=== PATIENT | male | born 1950 | race Caucasian/White ===

== ENCOUNTER → 2016-11-27 | Outpatient (CLI) | payer MEDICARE ==
--- NOTE | 2016-11-27 17:26 | PN ---
DATE OF SERVICE: 11/27/16 66 year old gentleman has been followed in the sleep center for treatment of obstructive sleep apnea/hypopnea syndrome. The patient continued to use his equipment every night for the whole night without significant problems. He was tried on nasal pillows before but because he opened his mouth, he preferred to stay with full face mask. No snoring with the machine. He still has some sleepiness but it is improved. Today's [place] sleep scale is 9, previously was in the range of 11. MEDICATIONS: Losartan. During physical exam, the patient in no distress. BP 135/79. HR 60. RR 16. Height 5 feet 9 inches, weight 228, BMI 33.6, temp 97.0, oxygen saturation on room air, 95%. Oropharynx low position of low soft palate, abdomen is slightly obese. Extremities 1+ ankle edema bilaterally. other physical normal. NECK: Supple. No JVD. Thyroid is not palpable. LUNGS: Clear to percussion and auscultation. Good air exchange. No wheezing or rhonchi noted. HEART: S1, S2 regular. No murmurs, gallops or rubs. ABDOMEN: Soft, obese, nontender. Bowel sounds are positive. No organomegaly appreciated. W[employer]TER[employer] HELPER: Awake, alert and oriented times three. Cranial nerves 2 to 7 intact. There is no fasciculation or atrophy noted. No focal deficits observed. IMPRESSION: 1. Obstructive sleep apnea/hypopnea syndrome. The patient continued to use his equipment every night benefitting from treatment. 2. Obesity, the patient lost five pounds since previous visit one year ago. 3. Hypertension. 4. Status post vasectomy. 5. Back problem with pain in the hip area better than before. PLAN: 1. Continue treatment with CPAP every night for the whole night. 2. Prescription for mask tube filters. 3. Prescription for chin strap. The patient will try to use nasal pillows with a chin strap. 4. No driving if feels any sleepiness. 5. Continue losing weight. 6. Follow up visit in one year or earlier if the patient has any problems. Thank you very much for allowing me to participate in the management of your patient. Sincerely, Yordan Boyer MD, PhD, FAASM. Diplomat of [place] [employer] [place] [employer] Manager [employer] [facility]
== END ==
LOC: SLEEP 15:31
PROVIDERS: ATTEND Internal Medicine
DX: G47.33 Obstructive sleep apnea (adult) (pediatric) (principal); E66.9 Obesity, unspecified; I10 Essential (primary) hypertension; Z90.89 Acquired absence of other organs

== ENCOUNTER 2017-02-18 16:46 | Emergency (ER) | payer MEDICARE ==
[2017-02-18] MEDS ORDERED: IBUPROFEN 800 MG TAB PO STA (17:14)
[2017-02-18] MEDS ORDERED: ACETAMINOPHEN TAB 500 MG TAB PO STA (17:14)
[2017-02-18] MEDS ORDERED: SODIUM CHLORIDE 0.9% 1,000 ML IV STA ×2 (17:14)
[2017-02-18] MEDS ORDERED: IPRATROPIUM-ALBUTEROL 3 ML NEB INHALATION STA (17:16)
[2017-02-18] MEDS ORDERED: SODIUM CHLORIDE 0.9% 2,000 ML IV ONE (17:19)
--- NOTE | 2017-02-18 17:20 | ED ---
General Adult HPI - General Chief complaint: Arrhythmia/Palpitations Stated complaint: Heart Palputations Time Seen by Provider: 02/18/17 17:04 Source: patient, RN notes reviewed, old records reviewed Mode of arrival: wheelchair Limitations: no limitations - History of Present Illness Initial comments: this is a 66-year-old male presents emergency Department chief complaint of arrhythmias and palpitations for the past day. Patient reports that since Thursday he's been having any upper respiratory infection. He reports that he was taking [id number] medications. The last time he took over-the- counter clinical medicine was 11 PM. He states that after that he felt like his heart was racing. He went to an urgent care was approximately come here. Patient states he has no specific chest pain. He reports that when he takes a deep breath it seems to be somewhat difficult. Patient states that he had no nausea or vomiting. Patient reports that he does feel chilled. Patient states that his cough has been somewhat productive. Patient denies any significant cardiac history. He does have a history of hypertension, and states that he is borderline diabetic. Patient denies any recent chest pain, back pain, abdominal pain, nausea vomiting, numbness or tingling, dysuria or hematuria, constipation or diarrhea, headaches or visual changes, or any other current symptoms - Related Data Home Medications Medication Instructions Recorded Confirmed Losartan-Hctz 50-12.5 mg [Hyzaar 1 tab PO DAILY 10/08/13 02/18/17 50-12.5] Cholecalciferol [Vitamin D3] 5,000 unit PO Q48H 02/18/17 02/18/17 Chondroitin 1 tab PO DAILY 02/18/17 02/18/17 Cyanocobalamin [Vitamin B-12] 500 mcg PO DAILY 02/18/17 02/18/17 L.acidoph,Paracasei, B.lactis 1 cap PO DAILY 02/18/17 02/18/17 [Probiotic] [place]-3 Fatty Acids [[place]-3] 1,000 mg PO DAILY 02/18/17 02/18/17 Pyridoxine [Vitamin B-6] 50 mg PO DAILY 02/18/17 02/18/17 Ubidecarenone [Co Q-10] 100 mg PO DAILY 02/18/17 02/18/17 Previous Rx's Medication Instructions Recorded Albuterol Inhaler [Ventolin Hfa 1 - 2 puff INHALATION Q6HR PRN #1 02/18/17 Inhaler] inhaler Levofloxacin [Levaquin] 750 mg PO DAILY #7 tab 02/18/17 methylPREDNISolone Dose Pack 4 mg PO DIRECTED #21 package 02/18/17 [Medrol Dose Pack] Allergies Allergy/AdvReac Type Severity Reaction Status Date / Time MOLD AdvReac SINUS Uncoded 02/18/17 16:50 PROBLEMS Review of Systems ROS Statement: Those systems with pertinent positive or pertinent negative responses have been documented in the HPI. ROS Other: All systems not noted in ROS Statement are negative. Past Medical History Past Medical History: Hypertension Additional Past Medical History / Comment(s): SEASONAL ALLERGIES History of Any Multi-Drug Resistant Organisms: None Reported Past Surgical History: No Surgical Hx Reported Past Psychological History: No Psychological Hx Reported Smoking Status: Never smoker Past Alcohol Use History: None Reported Past Drug Use History: None Reported General Exam - General Exam Comments Initial Comments: this is a 66-year-old male. Patient does not appear to be in any acute distress. is diaphoretic. Limitations: no limitations General appearance: alert, in no apparent distress Head exam: Present: atraumatic, normocephalic, normal inspection Eye exam: Present: normal appearance, PERRL, EOMI. Absent: scleral icterus, conjunctival injection, periorbital swelling ENT exam: Present: normal exam, mucous membranes moist Neck exam: Present: normal inspection. Absent: tenderness, meningismus, lymphadenopathy Respiratory exam: Present: normal lung sounds bilaterally, wheezes (bilateral wheeze). Absent: respiratory distress, rales, rhonchi, stridor Cardiovascular Exam: Present: regular rate, tachycardia, normal heart sounds. Absent: systolic murmur, diastolic murmur, rubs, gallop, clicks GI/Abdominal exam: Present: soft, normal bowel sounds. Absent: distended, tenderness, guarding, rebound, rigid Extremities exam: Present: normal inspection, full ROM, normal capillary refill. Absent: tenderness, pedal edema, joint swelling, calf tenderness Back exam: Present: normal inspection Neurological exam: Present: alert, oriented X3, CN II-XII intact Psychiatric exam: Present: normal affect, normal mood Skin exam: Present: warm, dry, intact, normal color. Absent: rash Course Vital Signs 02/18/17 02/18/17 02/18/17 16:48 17:43 17:57 Temperature 99.0 F Pulse Rate 144 H 122 H 124 H Respiratory 20 Rate Blood Pressure 116/82 O2 Sat by Pulse 99 Oximetry 02/18/17 02/18/17 18:00 19:05 Temperature 99.3 F Pulse Rate 130 H 74 Respiratory 18 18 Rate Blood Pressure 102/81 134/67 O2 Sat by Pulse 98 98 Oximetry - Reevaluation(s) Reevaluation #1: 02/18/17 19:09 this patient was reevaluated heart rate 74 bpm. Patient did receive 2 L of fluids and broke his fever. He is stop sweating at this time. Patient reports that he is feeling much better and does not feel like his heart is racing. EKG Findings - EKG Comments: EKG Findings:: EKG performed at 1755 shows accelerated rhythm with ventricular rate of 1 99 bpm. Evidence of a left anterior vesicular block. Evidence of left ventricular hypertrophy with repolarization adamantly. Unable to detect TN interval. QRS duration 84 ms. QT QTc is 320/471. Medical Decision Making - Medical Decision Making this is a 66-year-old male presents emergency Department chief complaint Palpitations. Patient reports emergency Department heart rate of 143 he did report that he took a decongestant medication for upper respiratory infection For the past few days. Patient also is noted to have a fever 100.5. Patient's was given IV fluids and lab work obtained. Patient's lab work was relatively unremarkable. There was an elevated CK K . Discussed this with Dr. Menon. Is likely related to patient's tachycardia. After receiving Motrin and Tylenol 2 L of fluids patient's heart rate returned to normal, he reports he is feeling much better. Patient heart rate was noted to be 66. Patient will be discharged at this time with a prescription for steroids and antibiotics for upper respiratory infection. Patient understands return parameters. Patient was advised follow-up with his primary care provider within the next 1-2 days. - Lab Data Result diagrams: 02/18/17 17:00 02/18/17 17:00 Lab Results 02/18/17 02/18/17 02/18/17 Range/Units 17:00 17:00 17:00 WBC 11.9 H (3.8-10.6) k/uL RBC 5.37 (4.30-5.90) m/uL Hgb 15.3 (13.0-17.5) gm/dL Hct 47.1 (39.0-53.0) % MCV 87.6 (80.0-100.0) fL MCH 28.4 (25.0-35.0) pg MCHC 32.4 (31.0-37.0) g/dL RDW 13.7 (11.5-15.5) % Plt Count 275 (150-450) k/uL Neutrophils % 81 % Lymphocytes % 6 % Monocytes % 8 % Eosinophils % 2 % Basophils % 1 % Neutrophils # 9.6 H (1.3-7.7) k/uL Lymphocytes # 0.8 L (1.0-4.8) k/uL Monocytes # 1.0 (0-1.0) k/uL Eosinophils # 0.2 (0-0.7) k/uL Basophils # 0.1 (0-0.2) k/uL PT (9.0-12.0) sec INR (<1.2) APTT (22.0-30.0) sec D-Dimer (<0.60) mg/L FEU Sodium 139 (137-145) mmol/L Potassium 4.5 (3.5-5.1) mmol/L Chloride 102 (98-107) mmol/L Carbon Dioxide 23 (22-30) mmol/L Anion Gap 14 mmol/L BUN 13 (9-20) mg/dL Creatinine 0.71 (0.66-1.25) mg/dL Est GFR (MDRD) Af Amer >60 (>60 ml/min/1.73 sqM) Est GFR (MDRD) Non-Af >60 (>60 ml/min/1.73 sqM) Glucose 151 H (74-99) mg/dL Plasma Lactic Acid Dean (0.7-2.0) mmol/L Calcium 9.5 (8.4-10.2) mg/dL Magnesium 2.3 (1.6-2.3) mg/dL Total Bilirubin 1.3 (0.2-1.3) mg/dL AST 61 H (17-59) U/L ALT 74 H (21-72) U/L Alkaline Phosphatase 95 (38-126) U/L Total Creatine Kinase 796 H (55-170) U/L CK-MB (CK-2) 18.3 H* (0.0-2.4) ng/mL CK-MB (CK-2) Rel Index 2.3 Troponin I 0.030 (0.000-0.034) ng/mL Total Protein 7.4 (6.3-8.2) g/dL Albumin 4.6 (3.5-5.0) g/dL TSH 1.610 (0.465-4.680) mIU/L Urine Color Urine Appearance (Clear) Urine pH (5.0-8.0) Ur Specific [place] (1.001-1.035) Urine Protein (Negative) Urine Glucose (UA) (Negative) Urine Blood (Negative) Urine Nitrite (Negative) Urine Bilirubin (Negative) Urine Urobilinogen (<2.0) mg/dL Ur Leukocyte Esterase (Negative) 02/18/17 02/18/17 02/18/17 Range/Units 17:00 17:00 17:25 WBC (3.8-10.6) k/uL RBC (4.30-5.90) m/uL Hgb (13.0-17.5) gm/dL Hct (39.0-53.0) % MCV (80.0-100.0) fL MCH (25.0-35.0) pg MCHC (31.0-37.0) g/dL RDW (11.5-15.5) % Plt Count (150-450) k/uL Neutrophils % % Lymphocytes % % Monocytes % % Eosinophils % % Basophils % % Neutrophils # (1.3-7.7) k/uL Lymphocytes # (1.0-4.8) k/uL Monocytes # (0-1.0) k/uL Eosinophils # (0-0.7) k/uL Basophils # (0-0.2) k/uL PT 10.3 (9.0-12.0) sec INR 1.0 (<1.2) APTT 26.8 (22.0-30.0) sec D-Dimer 0.32 (<0.60) mg/L FEU Sodium (137-145) mmol/L Potassium (3.5-5.1) mmol/L Chloride (98-107) mmol/L Carbon Dioxide (22-30) mmol/L Anion Gap mmol/L BUN (9-20) mg/dL Creatinine (0.66-1.25) mg/dL Est GFR (MDRD) Af Amer (>60 ml/min/1.73 sqM) Est GFR (MDRD) Non-Af (>60 ml/min/1.73 sqM) Glucose (74-99) mg/dL Plasma Lactic Acid Dean 1.3 (0.7-2.0) mmol/L Calcium (8.4-10.2) mg/dL Magnesium (1.6-2.3) mg/dL Total Bilirubin (0.2-1.3) mg/dL AST (17-59) U/L ALT (21-72) U/L Alkaline Phosphatase (38-126) U/L Total Creatine Kinase (55-170) U/L CK-MB (CK-2) (0.0-2.4) ng/mL CK-MB (CK-2) Rel Index Troponin I (0.000-0.034) ng/mL Total Protein (6.3-8.2) g/dL Albumin (3.5-5.0) g/dL TSH (0.465-4.680) mIU/L Urine Color Urine Appearance (Clear) Urine pH (5.0-8.0) Ur Specific [place] (1.001-1.035) Urine Protein (Negative) Urine Glucose (UA) (Negative) Urine Blood (Negative) Urine Nitrite (Negative) Urine Bilirubin (Negative) Urine Urobilinogen (<2.0) mg/dL Ur Leukocyte Esterase (Negative) 02/18/17 Range/Units 19:25 WBC (3.8-10.6) k/uL RBC (4.30-5.90) m/uL Hgb (13.0-17.5) gm/dL Hct (39.0-53.0) % MCV (80.0-100.0) fL MCH (25.0-35.0) pg MCHC (31.0-37.0) g/dL RDW (11.5-15.5) % Plt Count (150-450) k/uL Neutrophils % % Lymphocytes % % Monocytes % % Eosinophils % % Basophils % % Neutrophils # (1.3-7.7) k/uL Lymphocytes # (1.0-4.8) k/uL Monocytes # (0-1.0) k/uL Eosinophils # (0-0.7) k/uL Basophils # (0-0.2) k/uL PT (9.0-12.0) sec INR (<1.2) APTT (22.0-30.0) sec D-Dimer (<0.60) mg/L FEU Sodium (137-145) mmol/L Potassium (3.5-5.1) mmol/L Chloride (98-107) mmol/L Carbon Dioxide (22-30) mmol/L Anion Gap mmol/L BUN (9-20) mg/dL Creatinine (0.66-1.25) mg/dL Est GFR (MDRD) Af Amer (>60 ml/min/1.73 sqM) Est GFR (MDRD) Non-Af (>60 ml/min/1.73 sqM) Glucose (74-99) mg/dL Plasma Lactic Acid Dean (0.7-2.0) mmol/L Calcium (8.4-10.2) mg/dL Magnesium (1.6-2.3) mg/dL Total Bilirubin (0.2-1.3) mg/dL AST (17-59) U/L ALT (21-72) U/L Alkaline Phosphatase (38-126) U/L Total Creatine Kinase (55-170) U/L CK-MB (CK-2) (0.0-2.4) ng/mL CK-MB (CK-2) Rel Index Troponin I (0.000-0.034) ng/mL Total Protein (6.3-8.2) g/dL Albumin (3.5-5.0) g/dL TSH (0.465-4.680) mIU/L Urine Color Yellow Urine Appearance Clear (Clear) Urine pH 5.5 (5.0-8.0) Ur Specific [place] 1.016 (1.001-1.035) Urine Protein Trace H (Negative) Urine Glucose (UA) Negative (Negative) Urine Blood Negative (Negative) Urine Nitrite Negative (Negative) Urine Bilirubin Negative (Negative) Urine Urobilinogen <2.0 (<2.0) mg/dL Ur Leukocyte Esterase Negative (Negative) - Radiology Data Radiology results: report reviewed No evidence of acute pulmonary disease. Disposition Clinical Impression: Dehydration, History of tachycardia, Upper respiratory infection Disposition: HOME SELF-CARE Condition: Good Instructions: Dehydration (ED), Acute Bronchitis (ED) Additional Instructions: patient advised to increase her fluids. Take Motrin or Tylenol every 4 hours for fever. Take the antibiotics and steroid prescription as directed. Return to the emergency department if any alarming signs or symptoms occur. Prescriptions: Albuterol Inhaler [Ventolin Hfa Inhaler] 1 - 2 puff INHALATION Q6HR PRN #1 inhaler PRN Reason: Shortness Of Breath Levofloxacin [Levaquin] 750 mg PO DAILY #7 tab methylPREDNISolone Dose Pack [Medrol Dose Pack] 4 mg PO DIRECTED #21 package Referrals: Gely Hawk DO [Primary Care Provider] - 1-2 days Time of Disposition: 19:47
[2017-02-18] MEDS ORDERED: SODIUM CHLORIDE 0.9% 1,000 ML IV SCH (17:30)
[2017-02-18 17:32] LABS: Partial Thromboplastin Time 26.8 sec (22.0-30.0); Prothrombin Time 10.3 sec (9.0-12.0)
[2017-02-18 17:33] LABS: Basophils # (A) 0.1 k/uL (0-0.2); Basophils % (A) 1 %; CH 28.3; CHCM 32.4; Eosinophils # (A) 0.2 k/uL (0-0.7); Eosinophils % (A) 2 %; HCT 47.1 % (39.0-53.0); HDW 3.07; HGB 15.3 gm/dL (13.0-17.5); Luc # (Auto) 0.31; Luc % (Auto) 3; Lymphocytes # (A) 0.8 k/uL (1.0-4.8); Lymphocytes % (A) 6 %; MCH 28.4 pg (25.0-35.0); MCHC 32.4 g/dL (31.0-37.0); MCV 87.6 fL (80.0-100.0); Mean Platelet Volume 8.2; Monocytes % (A) 8 %; Neutrophils # (A) 9.6 k/uL (1.3-7.7); Neutrophils % (A) 81 %; RBC 5.37 m/uL (4.30-5.90); RDW 13.7 % (11.5-15.5); WBC 11.9 k/uL (3.8-10.6); WBC (Perox) 11.58
--- NOTE | 2017-02-18 17:34 | XR ---
EXAMINATION TYPE: XR chest 2V DATE OF EXAM: 02/18/2017 COMPARISON: NONE HISTORY: Shortness of breath TECHNIQUE: Frontal and lateral views of the chest are obtained. FINDINGS: Scattered senescent parenchymal changes noted. Hyperinflation compatible with COPD. No evidence for infiltrate. No evidence for atelectasis. Heart size is stable. Mediastinal structures are stable and grossly unremarkable. No evidence for hilar prominence. Degenerative changes dorsal spine. IMPRESSION: 1. No evidence for acute pulmonary disease.
[2017-02-18 17:37] LABS: ALT 74 U/L (21-72); AST 61 U/L (17-59); Alkaline Phosphatase 95 U/L (38-126); Anion Gap 14 mmol/L; Blood Urea Nitrogen 13 mg/dL (9-20); Calcium 9.5 mg/dL (8.4-10.2); Carbon Dioxide 23 mmol/L (22-30); Chloride 102 mmol/L (98-107); Glucose 151 mg/dL (74-99); Magnesium 2.3 mg/dL (1.6-2.3); Non-African American GFR(MDRD) >60 (>60 ml/min/1.73 sqM); Potassium 4.5 mmol/L (3.5-5.1); Sodium 139 mmol/L (137-145); Total Bilirubin 1.3 mg/dL (0.2-1.3); Total Protein 7.4 g/dL (6.3-8.2)
[2017-02-18 17:57] LABS: Troponin I 0.03 ng/mL (0.000-0.034)
[2017-02-18 17:58] LABS: Creatine Kinase MB 18.3 ng/mL (0.0-2.4)
[2017-02-18 19:06] VITALS: RESP 18
[2017-02-18 19:37] LABS: Appearance,Urine Clear (Clear); Bilirubin,Urine Negative (Negative); Glucose,Urine (UA) Negative (Negative); Ketones,Urine 2+ (Negative); Leukocyte Esterase,Urine Negative (Negative); Nitrite,Urine Negative (Negative); PH, Urine 5.5 (5.0-8.0); Protein,Urine Trace (Negative); Specific Gravity,Urine 1.016 (1.001-1.035); UA Billing (MACRO vs. MICRO) CHEM; Urobilinogen,Urine <2.0 mg/dL (<2.0)
[2017-02-18 20:01] VITALS: BP 110/62; PULSE 67; TEMP 99.2
== END 2017-02-18 19:59 | disposition home or self-care (01) ==
LOC: EC 16:46
DX: E86.0 Dehydration (principal); J06.9 Acute upper respiratory infection, unspecified; R00.0 Tachycardia, unspecified; R61 Generalized hyperhidrosis; R73.09 Other abnormal glucose; I10 Essential (primary) hypertension; Z79.899 Other long term (current) drug therapy; Z91.048 Other nonmedicinal substance allergy status
CPT/HCPCS: 36415; 71020; 80053; 81003; 82550; 82553; 83605; 83735; 84443; 84484; 85025; 85379; 85610; 85730; 87040; 93005; 94640; 96360; 96361; 99285

== ENCOUNTER 2017-02-20 14:24 | Emergency (ER) | payer MEDICARE ==
[2017-02-20] MEDS ORDERED: SODIUM CHLORIDE 0.9% 500 ML IV STA (14:58)
[2017-02-20] MEDS ORDERED: ADENOSINE 3 MG/ML 2 ML VIAL IVP STA (15:01)
--- NOTE | 2017-02-20 15:02 | ED ---
General Adult HPI - General Chief complaint: Arrhythmia/Palpitations Stated complaint: heart palpitations-revisit Time Seen by Provider: 02/20/17 14:30 Source: patient, RN notes reviewed Mode of arrival: wheelchair Limitations: no limitations - History of Present Illness Initial comments: This is a 66-year-old male presents emergency Department with the sensation of his heart is racing and he has some heaviness on his chest per patient states there is some mild shortness of breath associated with it. Patient states this happened on Thursday came to the hospital at low-grade fever and was told he had bronchitis in his heart rate slowed down after his fever appeared to go away. Patient states she has not had any temperatures and knows of today. He did take Tylenol at about 11:00 this morning. Patient denies any abdominal pain patient denies any nausea vomiting diarrhea per patient denies any erythema lesions or rashes anywhere. Patient denies headache patient denies numbness weakness. - Related Data Home Medications Medication Instructions Recorded Confirmed Losartan-Hctz 50-12.5 mg [Hyzaar 1 tab PO DAILY 10/08/13 02/20/17 50-12.5] Cholecalciferol [Vitamin D3] 5,000 unit PO Q48H 02/18/17 02/20/17 Cyanocobalamin [Vitamin B-12] 500 mcg PO DAILY 02/18/17 02/20/17 L.acidoph,Paracasei, B.lactis 1 cap PO DAILY 02/18/17 02/20/17 [Probiotic] [place]-3 Fatty Acids [[place]-3] 1,000 mg PO DAILY 02/18/17 02/20/17 Pyridoxine [Vitamin B-6] 50 mg PO DAILY 02/18/17 02/20/17 Ubidecarenone [Co Q-10] 100 mg PO DAILY 02/18/17 02/20/17 Glucosamine-Chondr 500-400Mg 1 tab PO DAILY 02/20/17 02/20/17 Previous Rx's Medication Instructions Recorded Albuterol Inhaler [Ventolin Hfa 1 - 2 puff INHALATION Q6HR PRN #1 02/18/17 Inhaler] inhaler Levofloxacin [Levaquin] 750 mg PO DAILY #7 tab 02/18/17 methylPREDNISolone Dose Pack 4 mg PO DIRECTED #21 package 02/18/17 [Medrol Dose Pack] Allergies Allergy/AdvReac Type Severity Reaction Status Date / Time mold AdvReac CONGESTION Verified 02/20/17 14:58 Review of Systems ROS Statement: Those systems with pertinent positive or pertinent negative responses have been documented in the HPI. ROS Other: All systems not noted in ROS Statement are negative. Past Medical History Past Medical History: Hypertension Additional Past Medical History / Comment(s): SEASONAL ALLERGIES History of Any Multi-Drug Resistant Organisms: None Reported Past Surgical History: No Surgical Hx Reported Past Psychological History: No Psychological Hx Reported Smoking Status: Never smoker Past Alcohol Use History: None Reported Past Drug Use History: None Reported General Exam - General Exam Comments Initial Comments: GENERAL: Patient is well-developed and well-nourished. Patient is nontoxic and well- hydrated and is in mild distress. ENT: Neck is soft and supple. No significant lymphadenopathy is noted. Oropharynx is clear. Moist mucous membranes. Neck has full range of motion without eliciting any pain. EYES: The sclera were anicteric and conjunctiva were pink and moist. Extraocular movements were intact and pupils were equal round and reactive to light. Eyelids were unremarkable. PULMONARY: Patient heart rate is regular and tachycardic at 134 beats a minute CARDIOVASCULAR: There is a regular rate and rhythm without any murmurs gallops or rubs. ABDOMEN: Soft and nontender with normal bowel sounds. No palpable organomegaly was noted. There is no palpable pulsatile mass. SKIN: Skin is clear with no lesions or rashes and otherwise unremarkable. NEUROLOGIC: Patient is alert and oriented x3. Cranial nerves II through XII are grossly intact. Motor and sensory are also intact. Normal speech, volume and content. Symmetrical smile. MUSCULOSKELETAL: Normal extremities with adequate strength and full range of motion. No lower extremity swelling or edema. No calf tenderness. LYMPHATICS: No significant lymphadenopathy is noted PSYCHIATRIC: Normal psychiatric evaluation. Normal interpersonal interactions appears functionally intact in deals appropriately with others. No signs of depression. Limitations: no limitations Course Vital Signs 02/20/17 02/20/17 02/20/17 14:26 14:30 15:12 Temperature 97 F L 99.1 F Pulse Rate 139 H 134 H Respiratory 18 18 Rate Blood Pressure 172/108 139/87 O2 Sat by Pulse 96 98 Oximetry 02/20/17 16:04 Temperature Pulse Rate 74 Respiratory 18 Rate Blood Pressure 127/68 O2 Sat by Pulse 98 Oximetry Medical Decision Making - Medical Decision Making EKG shows supraventricular tachycardia at 134 bpm QRS is 86 Q-T intervals 324 QTC is 483. Patient's EKG shows no ST segment elevation or depression or T wave abnormalities are noted. Patient is on a beta jane. Patient looked to be in SVT psychiatric the patient 6 of adenosine and converted the patient a normal sinus rhythm. EKG showed a normal sinus rhythm at 90 bpm UT interval 202 QRS is 108 QT interval 366 QTC is 447. Patient's symptoms almost completely resolved once the patient converted. Chest x-ray shows no acute abnormality. I went back into reevaluate the patient patient stated his symptoms had completely resolved shortly after he was given the adenosine. I will have the patient follow up with cardiology. - Lab Data Result diagrams: 02/20/17 14:52 02/20/17 14:52 Lab Results 02/20/17 02/20/17 02/20/17 Range/Units 14:52 14:52 14:52 WBC 12.2 H (3.8-10.6) k/uL RBC 5.32 (4.30-5.90) m/uL Hgb 15.1 (13.0-17.5) gm/dL Hct 46.4 (39.0-53.0) % MCV 87.2 (80.0-100.0) fL MCH 28.3 (25.0-35.0) pg MCHC 32.4 (31.0-37.0) g/dL RDW 14.5 (11.5-15.5) % Plt Count 261 (150-450) k/uL Neutrophils % 89 % Lymphocytes % 5 % Monocytes % 5 % Eosinophils % 0 % Basophils % 0 % Neutrophils # 10.8 H (1.3-7.7) k/uL Lymphocytes # 0.6 L (1.0-4.8) k/uL Monocytes # 0.6 (0-1.0) k/uL Eosinophils # 0.0 (0-0.7) k/uL Basophils # 0.0 (0-0.2) k/uL PT (9.0-12.0) sec INR (<1.2) APTT (22.0-30.0) sec D-Dimer (<0.60) mg/L FEU Sodium 138 (137-145) mmol/L Potassium 4.2 (3.5-5.1) mmol/L Chloride 105 (98-107) mmol/L Carbon Dioxide 19 L (22-30) mmol/L Anion Gap 14 mmol/L BUN 14 (9-20) mg/dL Creatinine 0.50 L (0.66-1.25) mg/dL Est GFR (MDRD) Af Amer >60 (>60 ml/min/1.73 sqM) Est GFR (MDRD) Non-Af >60 (>60 ml/min/1.73 sqM) Glucose 142 H (74-99) mg/dL Plasma Lactic Acid [place] (0.7-2.0) mmol/L Calcium 10.0 (8.4-10.2) mg/dL Magnesium 2.0 (1.6-2.3) mg/dL Total Bilirubin 0.8 (0.2-1.3) mg/dL AST 76 H (17-59) U/L ALT 77 H (21-72) U/L Alkaline Phosphatase 99 (38-126) U/L Total Creatine Kinase 501 H (55-170) U/L CK-MB (CK-2) 15.3 H* (0.0-2.4) ng/mL CK-MB (CK-2) Rel Index 3.1 Troponin I <0.012 (0.000-0.034) ng/mL NT-Pro-B Natriuret Pep pg/mL Total Protein 7.2 (6.3-8.2) g/dL Albumin 4.5 (3.5-5.0) g/dL 02/20/17 02/20/17 02/20/17 Range/Units 14:52 14:52 14:52 WBC (3.8-10.6) k/uL RBC (4.30-5.90) m/uL Hgb (13.0-17.5) gm/dL Hct (39.0-53.0) % MCV (80.0-100.0) fL MCH (25.0-35.0) pg MCHC (31.0-37.0) g/dL RDW (11.5-15.5) % Plt Count (150-450) k/uL Neutrophils % % Lymphocytes % % Monocytes % % Eosinophils % % Basophils % % Neutrophils # (1.3-7.7) k/uL Lymphocytes # (1.0-4.8) k/uL Monocytes # (0-1.0) k/uL Eosinophils # (0-0.7) k/uL Basophils # (0-0.2) k/uL PT 10.7 (9.0-12.0) sec INR 1.1 (<1.2) APTT 24.8 (22.0-30.0) sec D-Dimer 0.45 (<0.60) mg/L FEU Sodium (137-145) mmol/L Potassium (3.5-5.1) mmol/L Chloride (98-107) mmol/L Carbon Dioxide (22-30) mmol/L Anion Gap mmol/L BUN (9-20) mg/dL Creatinine (0.66-1.25) mg/dL Est GFR (MDRD) Af Amer (>60 ml/min/1.73 sqM) Est GFR (MDRD) Non-Af (>60 ml/min/1.73 sqM) Glucose (74-99) mg/dL Plasma Lactic Acid [place] 1.2 (0.7-2.0) mmol/L Calcium (8.4-10.2) mg/dL Magnesium (1.6-2.3) mg/dL Total Bilirubin (0.2-1.3) mg/dL AST (17-59) U/L ALT (21-72) U/L Alkaline Phosphatase (38-126) U/L Total Creatine Kinase (55-170) U/L CK-MB (CK-2) (0.0-2.4) ng/mL CK-MB (CK-2) Rel Index Troponin I (0.000-0.034) ng/mL NT-Pro-B Natriuret Pep 320 pg/mL Total Protein (6.3-8.2) g/dL Albumin (3.5-5.0) g/dL Critical Care Time Critical Care Time: Yes Total Critical Care Time: 35 Disposition Clinical Impression: Supraventricular tachycardia Disposition: HOME SELF-CARE Condition: Good Instructions: Supraventricular Tachycardia (ED) Referrals: Gely Hawk DO [Primary Care Provider] - 1-2 days Time of Disposition: 16:11
[2017-02-20 15:15] LABS: Basophils % (A) 0 %; CH 29.5; Eosinophils % (A) 0 %; HCT 46.4 % (39.0-53.0); HDW 3.11; HGB 15.1 gm/dL (13.0-17.5); Luc % (Auto) 1; Lymphocytes # (A) 0.6 k/uL (1.0-4.8); Lymphocytes % (A) 5 %; MCH 28.3 pg (25.0-35.0); MCHC 32.4 g/dL (31.0-37.0); MCV 87.2 fL (80.0-100.0); Mean Platelet Volume 8.1; Monocytes # (A) 0.6 k/uL (0-1.0); Monocytes % (A) 5 %; Neutrophils # (A) 10.8 k/uL (1.3-7.7); Neutrophils % (A) 89 %; RBC 5.32 m/uL (4.30-5.90); RDW 14.5 % (11.5-15.5); WBC 12.2 k/uL (3.8-10.6); WBC (Perox) 13.19
--- NOTE | 2017-02-20 15:26 | XR ---
EXAMINATION TYPE: XR chest 2V DATE OF EXAM: 02/20/2017 COMPARISON: 02/18/2017 HISTORY: Shortness of breath TECHNIQUE: Frontal and lateral views of the chest are obtained. FINDINGS: Scattered senescent parenchymal changes noted. Hyperinflation compatible with COPD. No evidence for infiltrate. No evidence for atelectasis. Heart size is stable. Mediastinal structures are stable and grossly unremarkable. No evidence for hilar prominence. Degenerative changes dorsal spine. IMPRESSION: 1. No evidence for acute pulmonary disease.
[2017-02-20 15:33] LABS: ALT 77 U/L (21-72); AST 76 U/L (17-59); Alkaline Phosphatase 99 U/L (38-126); Anion Gap 14 mmol/L; Blood Urea Nitrogen 14 mg/dL (9-20); Carbon Dioxide 19 mmol/L (22-30); Chloride 105 mmol/L (98-107); Glucose 142 mg/dL (74-99); Non-African American GFR(MDRD) >60 (>60 ml/min/1.73 sqM); Potassium 4.2 mmol/L (3.5-5.1); Sodium 138 mmol/L (137-145); Total Bilirubin 0.8 mg/dL (0.2-1.3); Total Protein 7.2 g/dL (6.3-8.2)
[2017-02-20 15:36] LABS: Creatine Kinase 501 U/L (55-170)
[2017-02-20 15:42] LABS: INR 1.1 (<1.2); Partial Thromboplastin Time 24.8 sec (22.0-30.0); Prothrombin Time 10.7 sec (9.0-12.0)
[2017-02-20 15:48] LABS: Troponin I <0.012 ng/mL (0.000-0.034)
[2017-02-20 15:49] LABS: Creatine Kinase MB 15.3 ng/mL (0.0-2.4)
[2017-02-20 16:49] VITALS: BP 130/77; PULSE 77; RESP 16; TEMP 99.3
== END 2017-02-20 16:48 | disposition home or self-care (01) ==
LOC: EC 14:24
DX: I47.1 Supraventricular tachycardia (principal); I10 Essential (primary) hypertension; Z91.09 Other allergy status, other than to drugs and biological substances; Z79.899 Other long term (current) drug therapy
CPT/HCPCS: 96361 ×2; 96374 ×2; 99285 ×2; 36415; 93005; 85379; 83880; 80053; 82550; 82553; 83605; 83735; 84484; 85025; 85610; 85730; 71020; J0153

== ENCOUNTER → 2017-12-17 | Outpatient (CLI) | payer MEDICARE ==
--- NOTE | 2017-12-17 18:49 | PN ---
PROGRESS NOTE DATE OF SERVICE: 12/17/2017 This patient is a 67-year-old gentleman who has been followed in the sleep center for treatment of obstructive sleep apnea-hypopnea syndrome. The patient successfully continues to use his CPAP equipment every night. He reports that sometimes his heated humidifier does not work. He still has sleepiness sometimes. [place] Sleepiness Scale is 13. I checked the patient's CPAP unit. CPAP pressure is 12 cm of water. Usage is 30/30 nights for more than 4 hours; average 7 hours 36 minutes. The patient is a using full- face mask with a chin strap. Sometimes he has difficulties breathing through the nose. MEDICATIONS: Losartan. PHYSICAL EXAMINATION: GENERAL A pleasant gentleman in no distress. VITAL SIGNS: BP 158/72, HR 72, RR 16, height 69-1/2, weight 222.8, BMI 30.3. Temperature 98.0. Oxygen saturation at room air 94%. HEENT: PERRLA, EOMI. Evaluation of oropharynx showed tongue protrudes midline; low position of soft palate. NECK: Supple. No JVD. Thyroid is not palpable. LUNGS: Clear to percussion and to auscultation. Good air exchange. No wheezing or rhonchi. HEART: S1, S2 regular. No murmurs, gallops or rubs. ABDOMEN: Obese. Soft and nontender. Bowel sounds are present. No organomegaly appreciated. EXTREMITIES : No clubbing or cyanosis. RFID ENGINEER: Awake, alert, and oriented X3. Cranial nerves 2 to 7 intact. There is no fasciculation or atrophy. noted. No focal deficits observed. IMPRESSION: 1. Obstructive sleep apnea-hypopnea syndrome. Patient demonstrated great compliance with treatment, benefitting from treatment. 2. Obesity. 3. Hypertension. 4. Status post . 5. Back problems. PLAN: 1. Patient will try nasal strips to use under the full-face mask. 2. Prescription for all necessary CPAP supplies, including full-face mask, tube, filters. 3. I checked the heated humidifier and it worked in the office, but maybe at home there are some bad connections from the machine to humidifier. Possibly needs to be rechecked or replaced if necessary in the future. 4. Losing weight. 5. Follow-up visit in 1 year or earlier if patient has any problems. We may consider replacement of his CPAP unit as soon as possible following insurance guidelines. Thank you very much for allowing me to participate in the management of your patient. Sincerely, Stephen Boyer MD, PhD, FAASM Diplomat of [employer] Journalism Intern of [facility] [place] DORCAS / AROLDO: [id number] /
== END | disposition home or self-care (01) ==
LOC: SLEEP 16:26
PROVIDERS: ATTEND Internal Medicine
DX: G47.33 Obstructive sleep apnea (adult) (pediatric) (principal); I10 Essential (primary) hypertension; E66.9 Obesity, unspecified; Z68.30 Body mass index [BMI] 30.0-30.9, adult; Z99.89 Dependence on other enabling machines and devices; Z79.899 Other long term (current) drug therapy

== ENCOUNTER → 2018-03-11 | Outpatient (CLI) | payer MEDICARE ==
--- NOTE | 2018-03-11 12:51 | SFUN ---
SLEEP CENTER FOLLOW UP NOTE DATE OF SERVICE: 03/11/2018 A 67-year-old gentleman who has been followed in sleep center for treatment of obstructive sleep apnea-hypopnea syndrome. Recently patient received new CPAP unit. This is his first visit on new CPAP unit. The reason to change the unit was because previously it was old, but also to be able to monitor patient breathing during the sleep, which is available by new unit. Patient continued to use his CPAP equipment every night for the whole night without any significant technical problems related to mask fitting, pressure or humidification. Previous sleep study was done in 2013 and by results of this sleep study CPAP pressure of 12 was fully effective for correction of respiratory abnormalities. Subsequently, a new machine was ordered for the patient with the same pressure 12 cm of water. I checked new CPAP unit today. The pressure is 12 cm of water. Leak is 12 L/minute, which is acceptable. Usage is 100% of the time more than 4 hours. Average usage 8.3 hours, which is perfect. Apnea-hypopnea index for the last month 24.5 with total apnea index 18.9 and central apnea index 2.9, which is not acceptable. [place] Sleepiness Scale today is increased to 12. MEDICATIONS: Losartan. PHYSICAL EXAMINATION: During physical exam, patient in no distress. VITAL SIGNS: BP 163/80, HR 66, RR 16, weight 227, which is 6 pounds less than during the previous titration 2013, temperature 97.6, oxygen saturation on room air 97%. HEENT: PERRLA, EOMI. Oropharynx low position of soft palate. NECK: Supple, no JVD. Thyroid is not palpable. LUNGS: Clear to percussion and to auscultation. Good air exchange. No wheezing or rhonchi. HEART: S1, S2 regular. No murmurs, gallops, or rubs. ABDOMEN: Soft and nontender. Bowel sounds are present. No organomegaly appreciated. EXTREMITIES: No clubbing or cyanosis. CIGAR MAKER; awake, alert, and oriented X3. Cranial nerves 2 to 7 intact. There is no fasciculation or atrophy. noted. No focal deficits observed. IMPRESSION: 1. Obstructive sleep apnea-hypopnea syndrome. The patient demonstrated 100% compliance with treatment, but still high apnea-hypopnea index by reading from the machine. 2. Hypertension. 3. Back problems. 4. Status post vasectomy. 5. History of sciatic nerve problems, presently no issues with that. PLAN: 1. I will change regimen in the machine to automatic with a maximum pressure of 16 cm of water. 2. Patient will continue to use CPAP equipment every night. 3. Losing weight. 4. Sleep hygiene with regular time in bed for at least 8 hours. 5. No driving if feeling any sleepiness. 6. Follow-up visit in 2 to 3 months. Thank you very much for allowing me to participate in management of your patient. Sincerely, Stephen Boyer MD, PhD, FAASM Diplomat of [place] [employer] [place] [employer] Tank Builder of [facility] [place] MMODL / IJN: [id number] /
== END | disposition home or self-care (01) ==
LOC: SLEEP 11:21
PROVIDERS: ATTEND Internal Medicine
DX: G47.33 Obstructive sleep apnea (adult) (pediatric) (principal); I10 Essential (primary) hypertension; Z87.39 Personal history of other diseases of the musculoskeletal system and connective tissue; Z98.52 Vasectomy status; Z99.89 Dependence on other enabling machines and devices; Z79.899 Other long term (current) drug therapy

== ENCOUNTER → 2019-03-17 | Outpatient (CLI) | payer MEDICARE ==
--- NOTE | 2019-03-17 16:13 | PN ---
PROGRESS NOTE DATE OF SERVICE: 03/17/2019 58-year-old gentleman who has been followed in Sleep Center for treatment of obstructive sleep apnea-hypopnea syndrome. Patient continued to use his CPAP equipment every night. No snoring with the machine according to his . He does not feel sleepy during the day as much as before. Today, his [place] Sleepiness Scale is 10 which is overall, still slightly increased. I checked his CPAP unit, range of the pressure 8-16, average pressure 15.9. Usage is every night for more than 4 hours with average usage 7.7 hours. Leak is only 6 L/minute, which is normal. Apnea-hypopnea index reading for the last month, 18.8 with total apnea index 12.1, and central apnea index 1.3. Checking for the 6 months period showed about the same numbers as for the last month. MEDICATIONS: Lotensin, Triamcinolone, Metoprolol. PHYSICAL EXAM: Patient in no distress. BP 142/81, HR 64, RR 16, height 5 feet 10 inches, weight 226.6, temperature 97.7, oxygen saturation at room air 97%. Body mass index 32.4. Oropharynx: Low position of soft palate. Mallampati 4. ABDOMEN: Slightly obese. NECK: Supple, no JVD. Thyroid is not palpable. LUNGS: Clear to percussion and to auscultation. Good air exchange. No wheezing or rhonchi. HEART: S1, S2 regular. No murmurs, gallops, or rubs. ABDOMEN: Slightly obese. Soft and nontender. Bowel sounds are present. No organomegaly appreciated. EXTREMITIES: No clubbing or cyanosis. OVERNIGHT CASHIER: Awake, alert, and oriented X3. Cranial nerves 2 to 7 intact. There is no fasciculation or atrophy. noted. No focal deficits observed. IMPRESSION: 1. Obstructive sleep apnea-hypopnea syndrome. Patient demonstrated 100% compliance with treatment benefitting from treatment, but still high apnea-hypopnea index reading from the machine with range of the pressure 8-16 and average pressure 15.9 cm of water. 2. Hypertension. 3. Back problems. 4. Status post vasectomy. 5. History of sciatic nerve problems in the past. PLAN: 1. I will change the regimen in the machine to the maximal pressure of 20. 2. Followup visit in 2 months. 3. Losing weight. 4. Sleep hygiene with regular time in bed for at least 8 hours. 5. No driving if feeling sleepiness. Thank you very much for allowing me to participate in management of your patient. Sincerely, DORCAS / AROLDO: [id number] /
== END ==
LOC: SLEEP 13:53
PROVIDERS: ATTEND Internal Medicine
DX: G47.33 Obstructive sleep apnea (adult) (pediatric) (principal); I10 Essential (primary) hypertension; R29.898 Other symptoms and signs involving the musculoskeletal system; Z98.890 Other specified postprocedural states; Z86.69 Personal history of other diseases of the nervous system and sense organs; Z79.899 Other long term (current) drug therapy

== ENCOUNTER → 2019-06-02 | Outpatient (CLI) | payer MEDICARE ==
--- NOTE | 2019-06-02 11:54 | SFUN ---
SLEEP CENTER FOLLOW UP NOTE DATE OF SERVICE: 06/02/2019 A 68-year-old gentleman who has been followed in Sleep Center for treatment of obstructive sleep apnea-hypopnea syndrome. During previous visit reading from the machine showed apnea-hypopnea index in high range of 18.8 with total apnea index 12.1 and central apnea index 1.3. I increased the level of the pressure to 20 cm of water. After pressure was increased, patient feels better. He sleeps better and he feels better during the day. He does not complain on any problems related to the pressure. [place] Sleepiness Scale is 8. I checked his CPAP unit, range of the pressure 8-20, average pressure 18.3, apnea- hypopnea index reduced to 10.7 with total apnea index 5.4, central apnea 0.9, significantly 41 L/minute have been documented. Usage is 30/30 nights and 29/30 nights for more than 4 hours with average usage 8 hours per night. MEDICATIONS: Lotensin, triamcinolone, metoprolol. PHYSICAL EXAM: Patient in no distress. BP 157/87, HR 76, RR 16, height 5, 10, weight 225, body mass index 32.2, temperature 97.7, oxygen saturation at room air 97%. OROPHARYNX: Extremely low soft palate, Mallampati 4. ABDOMEN: Obese. NECK: Supple, no JVD. Thyroid is not palpable. LUNGS: Clear to percussion and to auscultation. Good air exchange. No wheezing or rhonchi. HEART: S1, S2 regular. No murmurs, gallops, or rubs. EXTREMITIES: No clubbing or cyanosis. DIRECTOR EHS: Awake, alert, and oriented X3. Cranial nerves 2 to 7 intact. There is no fasciculation or atrophy. noted. No focal deficits observed. IMPRESSION: 1. Obstructive sleep apnea-hypopnea syndrome. Patient demonstrated 100% compliance with treatment, benefitting from treatment. Improvements of apnea-hypopnea index comparing to the previous visit, still slightly above normal range. Significant leak from the mask. 2. Hypertension. 3. Back problems. 4. Status post . 5. History of sciatic nerve problems in the past. 6. History of chronic sinusitis. PLAN: 1. Patient will continue to use CPAP equipment with the same regimen of the pressure every night for the whole night. 2. I replaced bushing is a full face mask. 3. Losing weight. 4. Sleep hygiene with regular time in bed for at least 7-1/2 - 8 hours. 5. No driving if feeling sleepiness. Thank you very much for allowing me to participate in the management of your patient. Sincerely, Stephen Boyer MD, PhD, FAASM Diplomat of [place] [employer] Ivory Polisher of [facility] [place] MMODL / IJN: [id number] /
== END | disposition home or self-care (01) ==
LOC: SLEEP 10:16
PROVIDERS: ATTEND Internal Medicine
DX: G47.33 Obstructive sleep apnea (adult) (pediatric) (principal); I10 Essential (primary) hypertension; M53.9 Dorsopathy, unspecified; Z87.09 Personal history of other diseases of the respiratory system; Z99.89 Dependence on other enabling machines and devices

== ENCOUNTER → 2019-12-01 | Outpatient (CLI) | payer MEDICARE ==
--- NOTE | 2019-12-01 18:10 | SFUN ---
SLEEP CENTER FOLLOW UP NOTE DATE OF SERVICE: 12/01/2019 This patient is a 69-year-old gentleman who has been followed in Sleep Center for treatment of obstructive sleep apnea-hypopnea syndrome. The patient continues to use his CPAP equipment every night but sometimes opens his mouth during the night. [place] Sleepiness Scale today is 8, which is normal. I checked his CPAP unit. Range of the pressure is 8 to 20. Usage is 30/30 nights for more than 4 hours, with average usage 7.4 hours per night. Extremely high leak at 112 L/minute. Apnea-hypopnea index for the last night 10.6, for the last month 15.2. MEDICATIONS: Metoprolol, losartan. PHYSICAL EXAMINATION: GENERAL: A pleasant patient in no distress. VITAL SIGNS: BP 126/73, HR 100, RR 16, height 5 feet 10 inches, weight 190, BMI 27.2, temperature 98.1, oxygen saturation at room air 98%. HEENT: PERRLA, EOMI. Evaluation of oropharynx showed tongue protrudes midline. Extremely low position of soft palate. Mallampati IV. NECK: Supple. No JVD. Thyroid is not palpable. LUNGS: Clear to percussion and to auscultation. Good air exchange. No wheezing or rhonchi. HEART: S1, S2 regular. No murmurs, gallops or rubs. ABDOMEN: Soft and nontender. Bowel sounds are present. No organomegaly. EXTREMITIES: No clubbing or cyanosis. DRY END TESTER: Awake, alert, and oriented X3. Cranial nerves 2 to 7 intact. There is no fasciculation or atrophy. noted. No focal deficits observed. IMPRESSION: 1. Obstructive sleep apnea-hypopnea syndrome. Patient demonstrated 100% compliance with treatment, benefitting from treatment. 2. Significant leak from the mask in very high range. Apnea-hypopnea index above normal range. 3. Hypertension. 4. Back problems. 5. History of sciatic nerve problems in the past. 6. History of chronic sinusitis. PLAN: 1. We will try to fit the patient with a different style of full-face mask, DreamWear. 2. Patient will continue to use PAP equipment every night for the whole night. 3. Sleep hygiene with regular time in bed for at least 7-1/2 to 8 hours. 4. Precautions related to driving. No driving if feeling sleepiness. 5. I will maintain all necessary prescription for PAP supplies including mask, tube, filters. 6. Watching weight. 7. No driving if feeling sleepiness. 8. Follow-up visit in 6 months or earlier if patient has any problems. MMODL / IJN: [id number] /
== END | disposition home or self-care (01) ==

== ENCOUNTER → 2020-03-01 | Outpatient (CLI) | payer MEDICARE ==
--- NOTE | 2020-03-01 11:37 | SFUN ---
SLEEP CENTER FOLLOW UP NOTE DATE OF SERVICE: 03/01/2020. A 69-year-old gentleman who has been followed in the Sleep Center for treatment of obstructive sleep apnea-hypopnea syndrome. Patient continued to use his CPAP equipment every night but still has a leak from the mask. He feels it on the face and sometimes wakes up from sleep. [place] Sleepiness Scale today is 6. I checked his CPAP unit, it is on automatic regimen, range of the pressure 8-20, average pressure 14.1, usage 30/30 nights for more than 4 hours. Average usage is 7.2 hours. Leak is 37 L/minutes, significantly better than during the previous visit when it was extremely high around 112 L per minute. Apnea-hypopnea index still increased to 12.3. During the last visit, it was in the range of 15, but during this visit for the last night it was it was 18.2. I reviewed results of previous visits, during several previous visits, patient continued to have some abnormalities of respirations. I reviewed results of previous sleep study which was done in 2013. Results of the sleep study were perfect. The patient did not have significant respiratory abnormalities during titration at all. MEDICATIONS: Metoprolol, losartan. PHYSICAL EXAM: Patient in no distress. BP 122/73, HR 68, RR 16, weight 194 pounds which is significantly less than during previous titration. In previous titration it was 233 pounds, temperature 97.8, oxygen saturation at room air 98%. OROPHARYNX: Extremely low position of soft palate. Mallampati 4. IMPRESSION: 1. Obstructive sleep apnea-hypopnea syndrome. The patient demonstrated 100% compliance with treatment, but continued to have some abnormalities of respiration during the sleep, although with a changing mask several times, leak is less than before. Reviewing previous visit showed that patient had some abnormalities of respiration before and he already had several attempts changing of pressure and changing of the mask, but again he continued to have abnormalities of respiration. 2. Significant changes of weight, presently comparing it with the weight during previous titration which was done in 2013. 3. Hypertension. 4. Back problems. 5. History of sciatic nerve problems in the past. 6. History of chronic sinusitis. PLAN: 1. Repeat CPAP, if necessary BiPAP titration for correction of patient respiratory abnormalities during sleep, also to possibly find correct mask for the patient. 2. Watching weight. 3. Patient will continue to use PAP equipment every night for the whole night. 4. Sleep hygiene with regular time in bed for at least 7-1/2 to 8 hours. 5. Precautions related to driving. No driving if feeling sleepiness. 6. I will maintain all necessary prescription for PAP supplies including mask, tube, filters. 7. Watching weight. No driving if feeling sleepiness. 8. Follow-up visit in 6 months or earlier if patient has any problems. Thank you very much for allowing me to participate in the management of your patient. Sincerely, Stephen Boyer MD, PhD, FAASM Diplomat of [employer] [place] [employer] Specialties [employer] [place] [employer] of [employer] Medicine Assistant Terminal Manager of [facility] [place] MMODL / IJN: [id number] /
== END | disposition home or self-care (01) ==
LOC: SLEEP 09:56
PROVIDERS: ATTEND Internal Medicine
DX: G47.33 Obstructive sleep apnea (adult) (pediatric) (principal); I10 Essential (primary) hypertension; J32.9 Chronic sinusitis, unspecified; M43.9 Deforming dorsopathy, unspecified; Z86.69 Personal history of other diseases of the nervous system and sense organs; Z99.89 Dependence on other enabling machines and devices

== ENCOUNTER 2020-06-11 22:35 | Emergency (ER) | payer MEDICARE ==
[2020-06-11] MEDS ORDERED: ACETAMINOPHEN TAB 325 MG TAB PO STA (22:47)
[2020-06-11 23:11] LABS: Basophils # (A) 0.1 k/uL (0-0.2); Basophils % (A) 1 %; Eosinophils # (A) 0.1 k/uL (0-0.7); Eosinophils % (A) 1 %; HCT 41.3 % (39.0-53.0); Lymphocytes # (A) 0.1 k/uL (1.0-4.8); Lymphocytes % (A) 1 %; MCH 29.1 pg (25.0-35.0); MCV 85.7 fL (80.0-100.0); Mean Platelet Volume 8.6; Monocytes # (A) 0.4 k/uL (0-1.0); Monocytes % (A) 4 %; Neutrophils # (A) 10.3 k/uL (1.3-7.7); Neutrophils % (A) 93 %; Platelet Count 121 k/uL (150-450); RBC 4.82 m/uL (4.30-5.90); RDW 13.4 % (11.5-15.5); WBC 11.1 k/uL (3.8-10.6)
[2020-06-11 23:25] LABS: ALT 46 U/L (4-49); AST 59 U/L (17-59); African American GFR (CKD) >90 (>60 ml/min/1.73 sqM); Albumin 4.3 g/dL (3.5-5.0); Alkaline Phosphatase 80 U/L (38-126); Anion Gap 11 mmol/L; Blood Urea Nitrogen 16 mg/dL (9-20); Calcium 9.1 mg/dL (8.4-10.2); Carbon Dioxide 22 mmol/L (22-30); Chloride 103 mmol/L (98-107); Glucose 160 mg/dL (74-99); Non-African American GFR(CKD) >90 (>60 ml/min/1.73 sqM); Potassium 3.3 mmol/L (3.5-5.1); Sodium 136 mmol/L (137-145); Total Bilirubin 1.3 mg/dL (0.2-1.3); Total Protein 6.7 g/dL (6.3-8.2)
[2020-06-11 23:28] LABS: Appearance,Urine Clear (Clear); Bilirubin,Urine Negative (Negative); Blood,Urine Negative (Negative); Color,Urine Yellow; Glucose,Urine (UA) Negative (Negative); Ketones,Urine 1+ (Negative); Leukocyte Esterase,Urine Negative (Negative); Nitrite,Urine Negative (Negative); PH, Urine 5.5 (5.0-8.0); Protein,Urine Trace (Negative); Specific Gravity,Urine 1.022 (1.001-1.035); Urobilinogen,Urine <2.0 mg/dL (<2.0)
--- NOTE | 2020-06-11 23:37 | XR ---
EXAMINATION TYPE: XR chest 2V DATE OF EXAM: 06/11/2020 COMPARISON: NONE HISTORY: Chest pain TECHNIQUE: 2 views FINDINGS: Heart is normal. Lungs are clear of infiltrate. There is no heart failure. There are chest leads. There are no hilar masses. IMPRESSION: No active cardiopulmonary disease. Normal heart. No change.
[2020-06-12] MEDS ORDERED: IBUPROFEN 400 MG TAB PO STA (00:02)
--- NOTE | 2020-06-12 00:02 | ED ---
Fever HPI - General Chief Complaint: Fever Stated Complaint: Fever Time Seen by Provider: 06/11/20 22:44 Source: patient Mode of arrival: wheelchair Limitations: no limitations - History of Present Illness Initial Comments: This patient is 69-year-old man who presents to be evaluated for fevers and chills, body aches, headache, and mild cough. Patient states that he was in his usual state of health until last night when he noticed that he was feeling fatigued and just not like his usual self. He states that today while he was working he noticed that he was having fevers, he was having a mild cough, and he had frontal headache that was moderate in intensity. No accompanying neurologic symptoms. No neck stiffness or pain. No other symptoms of infection. No chest pain or dyspnea. MD Complaint: fever, malaise Onset/Timin -: days(s) Associated Symptoms: chills, myalgias, headache, cough - Related Data Home Medications Medication Instructions Recorded Confirmed Acetaminophen Tab [Tylenol] 1,500 mg PO Q4H PRN 06/11/20 06/11/20 Ibuprofen [Motrin Ib] 400 mg PO Q4H PRN 06/11/20 06/11/20 Losartan Potassium [Cozaar] 50 mg PO DAILY 06/11/20 06/11/20 Metoprolol Succinate (ER) [Toprol 25 mg PO DAILY 06/11/20 06/11/20 XL] Mv-Min/Vit C/Glut/Lysine/Hc124 1 tab PO ONCE PRN 06/11/20 06/11/20 [Airborne Tablet Chewable] Allergies Allergy/AdvReac Type Severity Reaction Status Date / Time mold AdvReac CONGESTION Verified 06/11/20 23:13 Review of Systems ROS Statement: Those systems with pertinent positive or pertinent negative responses have been documented in the HPI. ROS Other: All systems not noted in ROS Statement are negative. Constitutional: Reports: fever, chills ENT: Denies: throat pain, congestion Respiratory: Reports: cough. Denies: dyspnea, wheezes, hemoptysis Cardiovascular: Denies: chest pain, palpitations, orthopnea, edema, syncope Gastrointestinal: Denies: abdominal pain, vomiting, diarrhea Genitourinary: Denies: dysuria, hematuria Musculoskeletal: Reports: myalgia. Denies: back pain Skin: Denies: rash Neurological: Reports: headache. Denies: weakness, numbness, paresthesias Past Medical History Past Medical History: Hypertension Additional Past Medical History / Comment(s): SEASONAL ALLERGIES History of Any Multi-Drug Resistant Organisms: None Reported Past Surgical History: No Surgical Hx Reported Past Psychological History: No Psychological Hx Reported Smoking Status: Never smoker Past Alcohol Use History: None Reported Past Drug Use History: None Reported General Exam Limitations: no limitations General appearance: alert, in no apparent distress Head exam: Present: atraumatic, normocephalic Eye exam: Present: normal appearance, PERRL, EOMI. Absent: scleral icterus, conjunctival injection ENT exam: Present: normal oropharynx, mucous membranes moist Neck exam: Present: normal inspection, full ROM. Absent: tenderness, meningismus, lymphadenopathy Respiratory exam: Present: normal lung sounds bilaterally. Absent: respiratory distress, wheezes, rales, rhonchi, stridor Cardiovascular Exam: Present: regular rate, normal rhythm, normal heart sounds. Absent: systolic murmur, diastolic murmur, rubs, gallop GI/Abdominal exam: Present: soft. Absent: distended, tenderness, guarding, rebound, rigid, mass Extremities exam: Present: normal inspection, normal capillary refill. Absent: pedal edema, calf tenderness Back exam: Present: normal inspection. Absent: CVA tenderness (R), CVA tenderness (L) Neurological exam: Present: alert Skin exam: Present: warm, dry, intact, normal color. Absent: rash Course Vital Signs 06/11/20 06/12/20 22:37 00:07 Temperature 102.1 F H 98 F Pulse Rate 83 68 Respiratory 20 18 Rate Blood Pressure 147/71 143/71 O2 Sat by Pulse 95 99 Oximetry Medical Decision Making - Medical Decision Making Patient is a 69-year-old man presenting with symptoms strongly suggestive of coronavirus infection though certainly other viral syndrome possible. Workup is negative and he does appear clinically well. Discussed appropriate further care and follow-up as well as how to check the results of the send out coronavirus test. Instructed to quarantine until receiving results. Also discussed return parameters - Lab Data Result diagrams: 06/11/20 22:57 06/11/20 22:57 Lab Results 06/11/20 06/11/20 06/11/20 Range/Units 22:57 22:57 22:57 WBC 11.1 H (3.8-10.6) k/uL RBC 4.82 (4.30-5.90) m/uL Hgb 14.0 (13.0-17.5) gm/dL Hct 41.3 (39.0-53.0) % MCV 85.7 (80.0-100.0) fL MCH 29.1 (25.0-35.0) pg MCHC 34.0 (31.0-37.0) g/dL RDW 13.4 (11.5-15.5) % Plt Count 121 L (150-450) k/uL MPV 8.6 Neutrophils % 93 % Lymphocytes % 1 % Monocytes % 4 % Eosinophils % 1 % Basophils % 1 % Neutrophils # 10.3 H (1.3-7.7) k/uL Lymphocytes # 0.1 L (1.0-4.8) k/uL Monocytes # 0.4 (0-1.0) k/uL Eosinophils # 0.1 (0-0.7) k/uL Basophils # 0.1 (0-0.2) k/uL Sodium 136 L (137-145) mmol/L Potassium 3.3 L (3.5-5.1) mmol/L Chloride 103 (98-107) mmol/L Carbon Dioxide 22 (22-30) mmol/L Anion Gap 11 mmol/L BUN 16 (9-20) mg/dL Creatinine 0.50 L (0.66-1.25) mg/dL Est GFR (CKD-EPI)AfAm >90 (>60 ml/min/1.73 sqM) Est GFR (CKD-EPI)NonAf >90 (>60 ml/min/1.73 sqM) Glucose 160 H (74-99) mg/dL Plasma Lactic Acid Dean 1.4 (0.7-2.0) mmol/L Calcium 9.1 (8.4-10.2) mg/dL Total Bilirubin 1.3 (0.2-1.3) mg/dL AST 59 (17-59) U/L ALT 46 (4-49) U/L Alkaline Phosphatase 80 (38-126) U/L Total Protein 6.7 (6.3-8.2) g/dL Albumin 4.3 (3.5-5.0) g/dL Urine Color Urine Appearance (Clear) Urine pH (5.0-8.0) Ur Specific [place] (1.001-1.035) Urine Protein (Negative) Urine Glucose (UA) (Negative) Urine Ketones (Negative) Urine Blood (Negative) Urine Nitrite (Negative) Urine Bilirubin (Negative) Urine Urobilinogen (<2.0) mg/dL Ur Leukocyte Esterase (Negative) Coronavirus (PCR) (Not Detectd) 06/11/20 06/11/20 Range/Units 22:57 23:08 WBC (3.8-10.6) k/uL RBC (4.30-5.90) m/uL Hgb (13.0-17.5) gm/dL Hct (39.0-53.0) % MCV (80.0-100.0) fL MCH (25.0-35.0) pg MCHC (31.0-37.0) g/dL RDW (11.5-15.5) % Plt Count (150-450) k/uL MPV Neutrophils % % Lymphocytes % % Monocytes % % Eosinophils % % Basophils % % Neutrophils # (1.3-7.7) k/uL Lymphocytes # (1.0-4.8) k/uL Monocytes # (0-1.0) k/uL Eosinophils # (0-0.7) k/uL Basophils # (0-0.2) k/uL Sodium (137-145) mmol/L Potassium (3.5-5.1) mmol/L Chloride (98-107) mmol/L Carbon Dioxide (22-30) mmol/L Anion Gap mmol/L BUN (9-20) mg/dL Creatinine (0.66-1.25) mg/dL Est GFR (CKD-EPI)AfAm (>60 ml/min/1.73 sqM) Est GFR (CKD-EPI)NonAf (>60 ml/min/1.73 sqM) Glucose (74-99) mg/dL Plasma Lactic Acid Dean (0.7-2.0) mmol/L Calcium (8.4-10.2) mg/dL Total Bilirubin (0.2-1.3) mg/dL AST (17-59) U/L ALT (4-49) U/L Alkaline Phosphatase (38-126) U/L Total Protein (6.3-8.2) g/dL Albumin (3.5-5.0) g/dL Urine Color Yellow Urine Appearance Clear (Clear) Urine pH 5.5 (5.0-8.0) Ur Specific [place] 1.022 (1.001-1.035) Urine Protein Trace H (Negative) Urine Glucose (UA) Negative (Negative) Urine Ketones 1+ H (Negative) Urine Blood Negative (Negative) Urine Nitrite Negative (Negative) Urine Bilirubin Negative (Negative) Urine Urobilinogen <2.0 (<2.0) mg/dL Ur Leukocyte Esterase Negative (Negative) Coronavirus (PCR) Not Detected (Not Detectd) Disposition Clinical Impression: Fever, Viral infection Disposition: HOME SELF-CARE Condition: Fair Instructions (If sedation given, give patient instructions): Fever in Adults (ED), Viral Syndrome (ED) Additional Instructions: Please quarantine until the results of the Donovan virus test have returned. If your worsening in anyway, developing shortness of breath or any other symptoms return immediately. Is patient prescribed a controlled substance at d/c from ED?: No Referrals: Gely Hawk, [Primary Care Provider] - 1-2 days
[2020-06-12 00:09] VITALS: BP 143/71; PULSE 68; RESP 18; TEMP 98
== END 2020-06-12 00:17 | disposition home or self-care (01) ==
LOC: EC 22:35
DX: B34.9 Viral infection, unspecified (principal); I10 Essential (primary) hypertension; Z20.822 Contact with and (suspected) exposure to COVID-19; Z79.899 Other long term (current) drug therapy; Z91.048 Other nonmedicinal substance allergy status
CPT/HCPCS: 36415; 80053; 83605; 85025; 81003; 87040; 87635; 71046; 99284; U0003; U0005

== ENCOUNTER 2020-09-19 08:05 | Day surgery (SDC) | payer MEDICARE ==
[2020-09-18 09:50] VITALS: BMI 27.2
[~2020-09-19 08:05] MED LIST: LACTATED RINGERS 1,000 ML IV SCH; LIDOCAINE 1% (10MG/ML) FOR IV START INTRADERMA PRN
[2020-09-19 08:27] VITALS: TEMP 98.2
[2020-09-19] MEDS ORDERED: PROPOFOL 10 MG/ML 20 ML VIAL IV ONE (08:33)
--- NOTE | 2020-09-19 08:51 | P.PCN ---
Date of Procedure: 09/19/20 Procedure(s) Performed: BRIEF HISTORY: Patient is a 70-year-old pleasant white male scheduled for an elective colonoscopy as a part of evaluation of prior history of colon polyps. His last colonoscopy was 5 years ago. PROCEDURE PERFORMED: Colonoscopy with snare polypectomy. PREOPERATIVE DIAGNOSIS: History of colon polyps. IV sedation per Anesthesia. PROCEDURE: After informed consent was obtained, the patient, was brought into the endoscopy unit. IV sedation was administered by Anesthesia under continuous monitoring. Digital rectal examination was normal. Initially the Olympus CF-160 flexible video colonoscope was then inserted in the rectum, gradually advanced into the cecum without any difficulty. Careful examination was performed as the scope was gradually being withdrawn. Ileocecal valve and the appendiceal orifice were visualized and appeared normal. Prep was excellent. Mucosa of the cecum, ascending colon, appeared normal. In the transverse colon there was a 5 mm polyp that was removed by snare polypectomy. Rest of the transverse colon, descending colon, sigmoid colon, and rectum appeared normal. Retroflexion was performed in the rectum and no lesions were seen. The patient tolerated the procedure well. IMPRESSION: 5 mm transverse colon polyp status post snare polypectomy Rest of the colon appeared normal RECOMMENDATIONS: Findings of this examination were discussed with the patient as well as his family. He was advised to follow with the biopsy results. If the biopsy shows an adenoma he can have a repeat colonoscopy in 5 years.
[2020-09-19 08:56] VITALS: RESP 16
[2020-09-19 09:16] VITALS: BP 108/67; PULSE 62
== END 2020-09-19 09:24 ==
LOC: ORWHC2ENDO 08:05
PROVIDERS: ATTEND Internal Medicine Gastroenterology
DX: Z12.11 Encounter for screening for malignant neoplasm of colon (principal); K52.9 Noninfective gastroenteritis and colitis, unspecified; K63.5 Polyp of colon; Z79.899 Other long term (current) drug therapy; Z86.010 Personal history of colon polyps; I10 Essential (primary) hypertension; G47.33 Obstructive sleep apnea (adult) (pediatric); Z99.89 Dependence on other enabling machines and devices; J30.2 Other seasonal allergic rhinitis; M19.90 Unspecified osteoarthritis, unspecified site; Z79.1 Long term (current) use of non-steroidal anti-inflammatories (NSAID); Z91.048 Other nonmedicinal substance allergy status
CPT/HCPCS: 88305; 45385; J2704

== ENCOUNTER → 2021-12-11 | Outpatient (CLI) | payer MEDICARE ==
--- NOTE | 2021-12-11 15:46 | P.PN ---
Subjective DATE: 12/11/2021 FOLLOW UP VISIT. Patient with obstructive sleep apnea hypopnea syndrome return to sleep center for follow-up visit. Information from previous visit have been reviewed. Patient is using PAP equipment every night for the whole night, getting PAP supplies in time. The patient patient does have some problems with the mask. Several times mask his been changed. His preference is dreamWhere fullface mask [place] sleepiness scale is 9. I checked information from PAP unit. PAP unit pressure 820 average 15.1 cm H2O. Usage is 100 % for more then 4 hours, average 8.4 hours per night. Leak is 104 l/m, which is high and not acceptable range. Apnea Hypopnea Index is significantly increased to 24. MEDICATIONS:1. Losartan hydrochlorothiazide 5012.5 mg once a day 2. Metoprolol 25 mg once a day During physical exam: GENERAL: A pleasant patient without any distress. VITAL SIGNS: BP 138/78, HR 66, RR 16, weight 206.4, temperature 97.1, oxygen saturation at room air 96 % . HEENT: PERRLA, EOMI.low position of soft palate, Mallapati4 . NECK: Supple. No JVD. LUNGS: Clear to percussion and to auscultation. Good air exchange. No wheezing or rhonchi. HEART: S1, S2 regular. ABDOMEN: Soft and nontender.[] EXTREMITIES: No clubbing or cyanosis. SEROLOGY TEACHER: Awake, alert, and oriented x3. No focal deficit. Impressions: 1. Obstructive sleep apnea-hypopnea syndrome. Patient demonstrated great compliance with treatment, but he continued to have abnormal respiration while on treatment with CPAP. CPAP in optometric regimen and maximal pressures 20 which is maximal which we could get from CPAP. Patient needs mask adjustments and the pressure adjustments if necessary BiPAP machine. 2. Hypertension. 3. Back problems. 4. History of sciatic nerve problems in the past. 5. History of sinusitis. Plan:1. CPAP if necessary BiPAP titration for correction of patient's respiratory abnormalities during the sleep. Presently patient continued to have significant abnormalities of respiration with maximal CPAP range of pressure. Continue using PAP equipment every night for the whole night. 2. To change air filter at least 1-2 times per month. 3. PAP unit should stay lower then position of the head. 4. Advised patient to remove all remaining water from humidifier canister daily and make it dry after each usage. Refill canister with fresh distilled water before each usage. 5. Sleep hygiene with regular time in bed for at least 8 hours. 6. Precautions related to driving. No driving if feel any sleepiness. 7. I will maintain prescription for PAP supplies including mask, tube, filters. 8. Follow up visit after PAP titration. 9. Watching weight. Thank you very much for allowing me to participate in the management of your patient. Stephen Boyer MD, PhD, FAASM. Diplomat of [place] [employer], Sleep Medicine Board by [employer] C[facility] [place]
== END ==
LOC: SLEEP 14:13
PROVIDERS: ATTEND Internal Medicine
DX: G47.33 Obstructive sleep apnea (adult) (pediatric) (principal); I10 Essential (primary) hypertension; M54.9 Dorsalgia, unspecified; Z87.09 Personal history of other diseases of the respiratory system; Z87.39 Personal history of other diseases of the musculoskeletal system and connective tissue; Z79.899 Other long term (current) drug therapy; Z91.09 Other allergy status, other than to drugs and biological substances
CPT/HCPCS: 99212

== ENCOUNTER → 2023-01-07 | Outpatient (CLI) | payer MEDICARE ==
--- NOTE | 2023-01-07 11:40 | P.PN ---
Subjective DATE: 01/07/2023 FOLLOW UP VISIT. Patient with obstructive sleep apnea hypopnea syndrome return to sleep center for follow-up visit. Information from previous visit have been reviewed. Patient is using PAP equipment every night for the whole night, getting PAP supplies in time. The patient does not have significant problems with the mask, PAP unit and humidification. [place]man sleepiness scale is 5, which is normal. I checked information from PAP unit. Patient changed size of the mask to the large. PAP unit pressure maximal inspiratory pressure 21, minimal expiratory pressure 8, pressure-support 4, average 17/13 cm H2O. Usage is 100 % for more then 4 hours, average 8.1 hours per night. Leak is 28 l/m, which is in acceptable range. Apnea Hypopnea Index is 7.5, including central 3.0, which is significant improvement comparing with previous visit when it was 20.2. MEDICATIONS:1. Losartan/hydrochlorothiazide 5012.5 mg once a day 2. Metoprolol 25 mg once a day During physical exam: GENERAL: A pleasant patient without any distress. VITAL SIGNS: BP 155/74, HR 67, RR 12 , weight 213.8, temperature 97.7, oxygen saturation at room air 98 % . HEENT: PERRLA, EOMI.low position of soft palate, Mallapati 4 . NECK: Supple. No JVD. LUNGS: Clear to percussion and to auscultation. Good air exchange. No wheezing or rhonchi. HEART: S1, S2 regular. ABDOMEN: Soft and nontender.[] EXTREMITIES: No clubbing or cyanosis. DELIVERER OUTSIDE: Awake, alert, and oriented x3. No focal deficit. Impressions: 1. Obstructive sleep apnea-hypopnea syndrome. Patient demonstrated great compliance with treatment, benefiting from treatment. Apnea-hypopnea index was significantly reduced comparing with previous visit to practically normal. 2. Hypertension. 3. Mild obesity BMI 31.0. 4. Back problems. 5. History of sciatica nerve problems in the past. 6. History of sinusitis. Plan: 1. Continue using PAP equipment every night for the whole night. 2. To change air filter at least 1-2 times per month. 3. PAP unit should stay lower then position of the head. 4. Advised patient to remove all remaining water from humidifier canister daily and make it dry after each usage. Refill canister with fresh distilled water before each usage. 5. Sleep hygiene with regular time in bed for at least 8 hours. 6. Precautions related to driving. No driving if feel any sleepiness. 7. I will maintain prescription for PAP supplies including mask, tube, filters. 8. Follow up visit in 6 months or earlier if patient has any problems. 9. Watching and losing weight. 10. Low sodium diet. Thank you very much for allowing me to participate in the management of your patient. Stephen Boyer MD, PhD, FAASM. Diplomat of [place] [employer], Sleep Medicine Board by [place] [employer] Quantity Surveyor [facility] [place]
== END ==
LOC: 3 N SLEEP 11:17
PROVIDERS: ATTEND Internal Medicine
DX: G47.33 Obstructive sleep apnea (adult) (pediatric) (principal); E66.9 Obesity, unspecified; I10 Essential (primary) hypertension; M54.9 Dorsalgia, unspecified; Z68.31 Body mass index [BMI] 31.0-31.9, adult; Z79.899 Other long term (current) drug therapy; Z99.89 Dependence on other enabling machines and devices; Z86.69 Personal history of other diseases of the nervous system and sense organs; Z87.09 Personal history of other diseases of the respiratory system; Z91.048 Other nonmedicinal substance allergy status
CPT/HCPCS: 99212

== ENCOUNTER → 2023-07-29 | Outpatient (CLI) | payer MEDICARE ==
[2023-07-29 10:36] VITALS: BP 130/79; PULSE 68; RESP 16; TEMP 97.7
--- NOTE | 2023-07-29 11:03 | P.PN ---
Subjective DATE: 07/29/2023 FOLLOW UP VISIT. Patient with obstructive sleep apnea hypopnea syndrome return to sleep center for follow-up visit. Information from previous visit have been reviewed. Patient is using PAP equipment every night for the whole night, getting PAP supplies in time. The patient does not have significant problems with the mask, PAP unit and humidification. [place] sleepiness scale is 6, which is normal. I checked information from PAP unit. PAP unit pressure maximal inspiratory pressure 21, minimal expiratory pressure 8, pressure support 4, average BiPAP pressure 18.7/14.7 cm H2O. Usage is 100% for more then 4 hours, average 7.75 hours per night. Leak is increased to 32.5 l/m. Apnea Hypopnea Index is 5.9, which is borderline. MEDICATIONS:1. Losartan/hydrochlorothiazide 2. Metoprolol During physical exam: GENERAL: A pleasant patient without any distress. VITAL SIGNS: See below. HEENT: PERRLA, EOMI.low position of soft palate, Mallapati 4 . NECK: Supple. No JVD. LUNGS: Clear to percussion and to auscultation. Good air exchange. No wheezing or rhonchi. HEART: S1, S2 regular. ABDOMEN: Soft and nontender.[] EXTREMITIES: No clubbing or cyanosis. CAR HOPPER: Awake, alert, and oriented x3. No focal deficit. Impressions: 1. Obstructive sleep apnea-hypopnea syndrome. Patient demonstrated great compliance with treatment, benefiting from treatment. 2. Hypertension. 3. Back problems. 4. History of episodes of cardiac arrhythmia with tachycardia. 5. Mild obesity. 6. History of sinusitis. 7. History of sciatic nerve problems. Plan: 1. Continue using PAP equipment every night for the whole night. 2. To change air filter at least 1-2 times per month. 3. PAP unit should stay lower then position of the head. 4. Advised patient to remove all remaining water from humidifier canister daily and make it dry after each usage. Refill canister with fresh distilled water before each usage. 5. Sleep hygiene with regular time in bed for at least 8 hours. 6. Precautions related to driving. No driving if feel any sleepiness. 7. I will maintain prescription for PAP supplies including mask, tube, filters. 8. Follow up visit in 6 months or earlier if patient has any problems. 9. Watching weight. Thank you very much for allowing me to participate in the management of your patient. Stephen Boyer MD, PhD, FAASM. Diplomat of [place] [employer] Medicine, Sleep Medicine Board by [place] [employer] [facility] [place] Objective - Vital Signs Vital signs: Vital Signs Temp 97.7 F 07/29/23 10:19 Pulse 68 07/29/23 10:19 Resp 16 07/29/23 10:19 BP 130/79 07/29/23 10:19 Pulse Ox 96 07/29/23 10:19 FiO2 Intake & Output 07/28/23 07/29/23 07/29/23 18:59 06:59 18:59 Weight 95.708 kg
== END ==
LOC: 3 N SLEEP 10:22
PROVIDERS: ATTEND Internal Medicine
DX: G47.33 Obstructive sleep apnea (adult) (pediatric) (principal); I10 Essential (primary) hypertension; M54.9 Dorsalgia, unspecified; M51.9 Unspecified thoracic, thoracolumbar and lumbosacral intervertebral disc disorder; E66.9 Obesity, unspecified; Z99.89 Dependence on other enabling machines and devices; Z87.09 Personal history of other diseases of the respiratory system; Z86.79 Personal history of other diseases of the circulatory system; Z87.39 Personal history of other diseases of the musculoskeletal system and connective tissue; Z79.899 Other long term (current) drug therapy; Z91.09 Other allergy status, other than to drugs and biological substances; Z68.30 Body mass index [BMI] 30.0-30.9, adult
CPT/HCPCS: 99212

== ENCOUNTER → 2024-04-20 | Outpatient (CLI) | payer MEDICARE ==
[2024-04-20 15:36] VITALS: BP 135/85; PULSE 69; RESP 18; TEMP 97.5
--- NOTE | 2024-04-20 15:57 | P.PROGSL ---
Subjective DATE: 04/20/2024 FOLLOW UP VISIT. Patient with obstructive sleep apnea hypopnea syndrome return to sleep center for follow-up visit. Information from previous visit have been reviewed. Patient is using PAP equipment every night for the whole night, getting PAP supplies in time. The patient does not have significant problems with the mask, PAP unit and humidification. [place]ones sleepiness scale is 5, which is normal. I checked information from PAP unit. PAP unit pressure maximal inspiratory pressure 21, minimal expiratory pressure 8, pressure support 4, average pressure 17.4/13.4 cm H2O. Usage is 100% for more then 4 hours, average 8.1 hours per night. Leak is increased to 40 l/m. Apnea Hypopnea Index is increased to 10.0 and it include 4.0 centrals. Apnea hypopnea index increased from 5.9 during previous visit when the pressure was the same. MEDICATIONS have been reviewed, please see below. During physical exam: GENERAL: A pleasant patient without any distress. VITAL SIGNS: Please see below, weight is 207.0 lbs. HEENT: PERRLA, EOMI.low position of soft palate, Mallapati 4 . NECK: Supple. No JVD. LUNGS: Clear to percussion and to auscultation. Good air exchange. No wheezing or rhonchi. HEART: S1, S2 regular. ABDOMEN: Soft and nontender.[] EXTREMITIES: No clubbing or cyanosis. KILN PUSHER: Awake, alert, and oriented x3. No focal deficit. Impressions: 1. Obstructive sleep apnea-hypopnea syndrome. Patient demonstrated great compliance with treatment, benefiting from treatment. 2. Hypertension. 3. History of episodes of cardiac arrhythmia with tachycardia. 4. Back problems. 5. History of sinusitis. 6. History of sciatic nerve problems. I increased maximal inspiratory pressure to 23 cm of water. Plan: 1. Continue using PAP equipment every night for the whole night. 2. Sleep hygiene with regular time in bed for at least 7.5-8 hours 3. PAP unit should stay lower then position of the head. 4. Advised patient to remove all remaining water from humidifier canister daily and make it dry after each usage. Refill canister with fresh distilled water before each usage. 5. Watching weight. 6. Precautions related to driving. No driving if feel any sleepiness. 7. I will maintain prescription for PAP supplies including mask, tube, filters. 8. Follow up visit in 2 months or earlier if patient has any problems. Thank you very much for allowing me to participate in the management of your patient. Stephen Boyer MD, PhD, FAASM. Diplomat of [place] [employer] Medicine, Sleep Medicine Board by [employer] Air [employer] Water Tester of [facility] [place] Objective - Vital Signs Vital Signs: Vital Signs Temp 97.5 F L 04/20/24 15:31 Pulse 69 04/20/24 15:31 Resp 18 04/20/24 15:31 BP 135/85 04/20/24 15:31 Pulse Ox 98 04/20/24 15:31 FiO2 Intake & Output 04/19/24 04/20/24 04/20/24 18:59 06:59 18:59 Weight 93.894 kg Home Medications: Home Medications Medication Instructions Recorded Confirmed Type Acetaminophen Tab [Tylenol] 1,500 mg PO Q4H PRN 06/11/20 07/29/23 History Ibuprofen [Motrin Ib] 400 mg PO Q4H PRN 06/11/20 07/29/23 History Losartan Potassium [Cozaar] 50 mg PO DAILY 06/11/20 04/20/24 History Metoprolol Succinate (ER) [Toprol 25 mg PO DAILY 06/11/20 04/20/24 History XL]
== END ==
LOC: 3 N SLEEP 15:17
PROVIDERS: ATTEND Internal Medicine
DX: G47.33 Obstructive sleep apnea (adult) (pediatric) (principal); I10 Essential (primary) hypertension; M54.50 Low back pain, unspecified; Z86.79 Personal history of other diseases of the circulatory system; Z87.09 Personal history of other diseases of the respiratory system; Z87.898 Personal history of other specified conditions; Z99.89 Dependence on other enabling machines and devices; Z91.048 Other nonmedicinal substance allergy status
CPT/HCPCS: 99212

== ENCOUNTER 2024-11-02 11:50 | Emergency (ER) | payer MEDICARE ==
[2024-11-02 11:56] VITALS: RESP 17; TEMP 97.8
--- NOTE | 2024-11-02 12:36 | ED ---
General Adult HPI - General Chief complaint: Abdominal Pain Stated complaint: GI issue Time Seen by Provider: 11/02/24 12:00 Source: patient, RN notes reviewed Mode of arrival: ambulatory Limitations: no limitations - History of Present Illness Initial comments: 74-year-old male presenting to the emergency department with referral from urgent care with concern for a bowel obstruction. Patient states that he has been experiencing loose stools/diarrhea over the past month with multiple episodes per day. He denies bloody stools, dark or sticky stools, associated urinary complaints, chest pain or difficulty breathing. Patient denies buster abdominal pain stating that he feels "distended ". He denies nausea, vomiting, fevers or chills. He denies recent travel, livestock exposure, fecal oral exposure, antibiotic use. - Related Data Home Medications Medication Instructions Recorded Confirmed Acetaminophen Tab [Tylenol] 1,500 mg PO Q4H PRN 06/11/20 07/29/23 Ibuprofen [Motrin Ib] 400 mg PO Q4H PRN 06/11/20 07/29/23 Losartan Potassium [Cozaar] 50 mg PO DAILY 06/11/20 06/30/24 Metoprolol Succinate (ER) [Toprol 25 mg PO DAILY 06/11/20 06/30/24 XL] Allergies Allergy/AdvReac Type Severity Reaction Status Date / Time mold AdvReac CONGESTION Verified 11/02/24 11:57 Review of Systems ROS Statement: Those systems with pertinent positive or pertinent negative responses have been documented in the HPI. ROS Other: All systems not noted in ROS Statement are negative. Past Medical History Past Medical History: Atrial Flutter, Hypertension, Osteoarthritis (OA), Sleep Apnea/CPAP/BIPAP Additional Past Medical History / Comment(s): SEASONAL ALLERGIES, USES CPAP MACHINE History of Any Multi-Drug Resistant Organisms: None Reported Past Surgical History: No Surgical Hx Reported Additional Past Surgical History / Comment(s): COLONOSCOPY, FOREIGN BODY REMOVED FROM LEFT EYE , CYSTOSCOPY -TO CHECK PROSTATE Past Anesthesia/Blood Transfusion Reactions: No Reported Reaction Past Psychological History: No Psychological Hx Reported Smoking Status: Never smoker Past Alcohol Use History: Rare Past Drug Use History: None Reported - Past Family History Mother Family Medical History: No Reported History Sister(s) Family Medical History: Cancer Additional Family Medical History / Comment(s): PANCREATIC CANCER General Exam Limitations: no limitations General appearance: alert, in no apparent distress ENT exam: Present: normal exam, mucous membranes moist Neck exam: Present: normal inspection. Absent: tenderness, meningismus, lymphadenopathy Respiratory exam: Present: normal lung sounds bilaterally. Absent: respiratory distress, wheezes, rales, rhonchi, stridor Cardiovascular Exam: Present: regular rate, normal rhythm, normal heart sounds. Absent: systolic murmur, diastolic murmur, rubs, gallop, clicks GI/Abdominal exam: Present: soft, distended, normal bowel sounds. Absent: tenderness, guarding, rebound, rigid Extremities exam: Present: normal inspection, full ROM, normal capillary refill. Absent: tenderness, pedal edema, joint swelling, calf tenderness Back exam: Present: normal inspection. Absent: CVA tenderness (R), CVA tenderness (L) Skin exam: Present: warm, dry, intact, normal color. Absent: rash Course Vital Signs 11/02/24 11/02/24 11:52 14:32 Temperature 97.8 F Pulse Rate 82 75 Respiratory 17 17 Rate Blood Pressure 128/82 112/66 O2 Sat by Pulse 99 97 Oximetry Medical Decision Making - Medical Decision Making Was pt. sent in by a medical professional or institution (, PA, [employer], urgent care, hospital, or group home...) When possible be specific @ -Patient was advised by urgent care to report to the emergency department for further evaluation of potential small bowel obstruction found on x-ray imaging of the abdomen. Did you speak to anyone other than the patient for history (EMS, parent, family, police, friend...)? What history was obtained from this source @ -No Did you review nursing and triage notes (agree or disagree)? Why? @ -I reviewed and agree with nursing and triage notes Were old charts reviewed (outside hosp., previous admission, EMS record, old EKG, old radiological studies, urgent care reports/EKG's, group home records)? Report findings @ -No old charts were reviewed Differential Diagnosis (chest pain, altered mental status, abdominal pain women, abdominal pain men, vaginal bleeding, weakness, fever, dyspnea, syncope, headache, dizziness, GI bleed, back pain, seizure, CVA, palpatations, mental health, musculoskeletal)? @ -Differential Abdominal Pain Men: Appendicitis, cholecystitis, diverticulosis, ischemic bowel, pancreatitis, hepatitis, UTI, gastroenteritis, AAA, incarcerated hernia, bowel obstruction, constipation, inflammatory bowel, hepatitis, peptic ulcer disease, splenic infarction, perforated viscus, testicular torsion, this is not meant to be an all-inclusive list EKG interpreted by me (3pts min.). @ -None X-rays interpreted by me (1pt min.). @ -None done CT interpreted by me (1pt min.). @ -CT of the abdomen pelvis with IV contrast fluid scattered throughout the colon with no evidence of bowel obstruction, cholelithiasis U/S interpreted by me (1pt. min.). @ -None done What testing was considered but not performed or refused? (CT, X-rays, U/S, labs)? Why? @ -None What meds were considered but not given or refused? Why? @ -None Did you discuss the management of the patient with other professionals (tiffanie naranjo i.e. , PA, [employer], lab, RT, psych nurse, social service director, set up mold technician, teacher, life science technical officer, case making machine operator)? Give summary @ -No Was smoking cessation discussed for >3mins.? @ -No Was critical care preformed (if so, how long)? @ -No Were there social determinants of health that impacted care today? How? (Homelessness, low income, unemployed, alcoholism, drug addiction, transportation, low edu. Level, literacy, decrease access to med. care, [facility]ci, rehab)? @ -No Was there de-escalation of care discussed even if they declined (Discuss DNR or withdrawal of care, Hospice)? DNR status @ -No What co-morbidities impacted this encounter? (DM, HTN, Smoking, COPD, CAD, Cancer, CVA, ARF, Chemo, Hep., AIDS, mental health diagnosis, sleep apnea, morbid obesity)? @ -None Was patient admitted / discharged? Hospital course, mention meds given and route, prescriptions, significant lab abnormalities, going to OR and other pertinent info. @ Discharge. 74-year-old male presenting as a referral for concern of a bowel obstruction. Overall patient is well-appearing and there are equal bowel sounds heard throughout quadrants. Patient's abdomen is mildly distended however he has no tenderness. Patient CBC is unremarkable. CMP reveals mild elevation of LFTs with an AST of 77, ALT of 72 and total bilirubin of 1.8. CT imaging the abdomen is unremarkable. Patient provided starter pack for Lomotil and instructed follow-up with primary care provider. Case discussed with my attending Dr. Brice. Undiagnosed new problem with uncertain prognosis? @ -No Drug Therapy requiring intensive monitoring for toxicity (Heparin, Nitro, Insulin, Cardizem)? @ -No Were any procedures done? @ -No Diagnosis/symptom? @ -diarrhea Acute, or Chronic, or Acute on Chronic? @ -acute Uncomplicated (without systemic symptoms) or Complicated (systemic symptoms)? @ -uncomplicated Side effects of treatment? @ -No Exacerbation, Progression, or Severe Exacerbation? @ -No Poses a threat to life or bodily function? How? (Chest pain, USA, GA, pneumonia, PE, COPD, DKA, ARF, appy, cholecystitis, CVA, Diverticulitis, Homicidal, Suicidal, threat to staff... and all critical care pts) @ -No - Lab Data Result diagrams: 11/02/24 12:47 11/02/24 12:47 Lab Results 11/02/24 11/02/24 11/02/24 Range/Units 12:47 12:47 12:47 WBC 7.50 (4.50-10.00) 10*3/uL RBC 5.41 (4.40-5.60) 10*6/uL Hgb 15.6 (13.0-17.0) g/dL Hct 45.1 (39.6-50.0) % MCV 83.4 (80.0-97.0) fL MCH 28.8 (27.0-32.0) pg MCHC 34.6 (32.0-37.0) g/dL Plt Count 239 (140-440) 10*3/uL MPV 10.2 (9.5-12.2) fL Immature Gran % (Auto) 0.4 % Neutrophils % 77.0 % Lymphocytes % 8.5 % Monocytes % 9.3 % Eosinophils % 3.9 % Basophils % 0.9 % Immature Gran # 0.03 (0.00-0.04) 10*3/uL Neutrophils # 5.77 (1.80-7.70) 10*3/uL Lymphocytes # 0.64 L (0.90-5.00) 10*3/uL Monocytes # 0.70 (0.20-1.00) 10*3/uL Eosinophils # 0.29 (0.04-0.35) 10*3/uL Basophils # 0.07 (0.00-0.10) 10*3/uL Sodium 138 (137-145) mmol/L Potassium 3.4 L (3.5-5.1) mmol/L Chloride 105 (98-107) mmol/L Carbon Dioxide 20 L (22-30) mmol/L Anion Gap 13 mmol/L BUN 7 L (9-20) mg/dL Creatinine 0.44 L (0.66-1.25) mg/dL Est GFR (CKD-EPI)AfAm >90 (>60 ml/min/1.73 sqM) Est GFR (CKD-EPI)NonAf >90 (>60 ml/min/1.73 sqM) Glucose 129 H (74-99) mg/dL Plasma Lactic Acid Dean 1.0 (0.7-2.0) mmol/L Calcium 9.2 (8.4-10.2) mg/dL Total Bilirubin 1.8 H (0.2-1.3) mg/dL AST 77 H (17-59) U/L ALT 72 H (4-49) U/L Alkaline Phosphatase 94 (38-126) U/L Total Protein 7.1 (6.3-8.2) g/dL Albumin 4.9 (3.5-5.0) g/dL Amylase 38 (30-110) U/L Lipase 57 (23-300) U/L Disposition Clinical Impression: Diarrhea Disposition: HOME SELF-CARE Condition: Good Instructions (If sedation given, give patient instructions): Acute Diarrhea (ED) Additional Instructions: Please return to the Emergency Department if symptoms worsen or any other concerns. Is patient prescribed a controlled substance at d/c from ED?: No Referrals: Gely Hawk DO [Primary Care Provider] - 1-2 days Time of Disposition: 14:25
[2024-11-02 13:05] LABS: Basophils # (A) 0.07 10*3/uL (0.00-0.10); Basophils % (A) 0.9 %; Eosinophils # (A) 0.29 10*3/uL (0.04-0.35); Eosinophils % (A) 3.9 %; HCT 45.1 % (39.6-50.0); HGB 15.6 g/dL (13.0-17.0); Lymphocytes # (A) 0.64 10*3/uL (0.90-5.00); Lymphocytes % (A) 8.5 %; MCH 28.8 pg (27.0-32.0); MCHC 34.6 g/dL (32.0-37.0); MCV 83.4 fL (80.0-97.0); Mean Platelet Volume 10.2 fL (9.5-12.2); Monocytes % (A) 9.3 %; Neutrophils # (A) 5.77 10*3/uL (1.80-7.70); Platelet Count 239 10*3/uL (140-440); RBC 5.41 10*6/uL (4.40-5.60); RDW 13.9 % (11.5-14.5)
[2024-11-02 13:17] LABS: ALT 72 U/L (4-49); African American GFR (CKD) >90 (>60 ml/min/1.73 sqM); Albumin 4.9 g/dL (3.5-5.0); Amylase 38 U/L (30-110); Anion Gap 13 mmol/L; Blood Urea Nitrogen 7 mg/dL (9-20); Calcium 9.2 mg/dL (8.4-10.2); Carbon Dioxide 20 mmol/L (22-30); Chloride 105 mmol/L (98-107); Glucose 129 mg/dL (74-99); Lipase 57 U/L (23-300); Non-African American GFR(CKD) >90 (>60 ml/min/1.73 sqM); Sodium 138 mmol/L (137-145); Total Bilirubin 1.8 mg/dL (0.2-1.3); Total Protein 7.1 g/dL (6.3-8.2)
[2024-11-02 13:20] LABS: AST 77 U/L (17-59); Alkaline Phosphatase 94 U/L (38-126); Potassium 3.4 mmol/L (3.5-5.1)
--- NOTE | 2024-11-02 13:59 | CT ---
EXAMINATION TYPE: CT abdomen pelvis w con DATE OF EXAM: 11/02/2024 COMPARISON: None CLINICAL INDICATION: Male, 74 years old with history of diarrhea, r/o obstruction (seen on outside ab . XR); PHH, BLOATING AND DIAHRREA FOR A WEEK TECHNIQUE: Performed without Oral Contrast and with IV Contrast, patient injected with 100 mL of Isovue 300. CT DLP: 1169.[address] CTDI: mGy Automated exposure control for dose reduction was used. FINDINGS: The lung bases are clear. There is a single large gallstone but there is no gallbladder distention, wall thickening or perichol ecystic fluid. There is no biliary ductal dilatation. There is no focal mass or organomegaly involving the liver, pancreas, spleen or adrenal glands. There is no solid renal mass or hydronephrosis and there is homogeneous contrast enhancement of the r enal parenchyma. The caliber the abdominal aorta is normal is no retroperitoneal adenopathy or hemorr cory. The bowel loops are normal in caliber and there is no evidence of dilatation or obstruction. No infla mmatory changes are identified in the bowel wall or mesentery. There is fluid scattered throughout th e colon. There is no free intraperitoneal air or fluid. No pelvic mass, free fluid, abscess or adenopathy. There is mild prostatic hypertrophy. The osseous structures and soft tissues are intact. IMPRESSION: 1. Fluid scattered throughout the colon but no bowel obstruction. 2. No free intraperitoneal air or fluid. 3. Cholelithiasis. 4. 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 [facility], , 11/02/2024 1:57 PM
[2024-11-02] MEDS: DIPHENOX-ATROP STARTER PACK 8 TAB BTL PO STA (14:30)
[2024-11-02 14:42] VITALS: BP 112/66; PULSE 75
== END 2024-11-02 14:38 | disposition home or self-care (01) ==
LOC: EC 11:50
DX: R19.7 Diarrhea, unspecified (principal); Z88.8 Allergy status to other drugs, medicaments and biological substances
CPT/HCPCS: 36415; 80053; 82150; 83605; 83690; 85025; 74177; 99284; Q9967

== ENCOUNTER 2024-11-15 06:11 | Day surgery (SDC) | payer MEDICARE ==
[2024-11-10 16:04] VITALS: BMI 28.8
[2024-11-15] MEDS ORDERED: SODIUM CHLORIDE 0.9% 500 ML IV SCH (06:30)
[2024-11-15] MEDS: SODIUM CHLORIDE 0.9% 500 ML 500 ML IV ONE (07:01)
[2024-11-15 07:02] VITALS: TEMP 98.2
[2024-11-15] MEDS ORDERED: PROPOFOL 10 MG/ML 20 ML VIAL IV ONE (07:25)
[2024-11-15] MEDS ORDERED: LIDOCAINE 1% INJ 10MG/ML (20 ML MDV) ONE (07:25)
[2024-11-15] MEDS: BENZOCAINE SPRAY 1 EACH MUCOUS MEM STA (07:34)
[2024-11-15 08:44] VITALS: BP 100/69; PULSE 70; RESP 16
[2024-11-15] MEDS ORDERED: SODIUM CHLORIDE 0.9% 1,000 ML IV SCH (09:00)
--- NOTE | 2024-12-02 23:45 | ECHOS ---
STRESS ECHOCARDIOGRAM STUDY: STEPHANIE. INDICATION: Persistent atrial fibrillation to rule out intracardiac thrombus prior to cardioversion. PROCEDURE NOTE: After obtaining informed consent, transesophageal echocardiogram was performed in left lateral position using an Omniplane probe. Local and IV sedation were obtained by the radioisotope production operator. The patient tolerated the procedure well without any obvious immediate complications. FINDINGS: 1. There is no intracardiac thrombus within the left atrial appendage, left atrium, right atrium, right ventricle, or left ventricle. 2. There is moderate enlargement of the left atrium. 3. Right atrium and right ventricle appear mildly enlarged. 4. Left ventricle has normal size and systolic function with an ejection fraction of 60%. 5. Aortic valve is a 3-leaflet valve. There is mild aortic regurgitation noted. 6. Mitral valve shows mild mitral regurgitation. 7. There is mild tricuspid regurgitation. 8. There is no evidence of shunting across the interatrial septum with color-flow Doppler. There is no evidence of [id number] shunt. CONCLUSION: No intracardiac thrombus. PLAN: The patient will proceed with cardioversion. STUDY: Cardioversion note. INDICATION: Persistent atrial fibrillation. PROCEDURE NOTE: After obtaining informed consent, electrical cardioversion was performed using 150 joules of synchronized DC current. He converted to sinus rhythm following a single shock. Adequately anticoagulated with Eliquis and STEPHANIE has ruled out intracardiac thrombus. CONCLUSION: Successful cardioversion. MMODL / IJN: [id number] /
== END 2024-11-15 09:21 | disposition home or self-care (01) ==
LOC: OR 06:11
PROVIDERS: ATTEND Internal Medicine Cardiovascular Disease
DX: I08.3 Combined rheumatic disorders of mitral, aortic and tricuspid valves (principal); I48.19 Other persistent atrial fibrillation; I10 Essential (primary) hypertension; I48.3 Typical atrial flutter; Z79.01 Long term (current) use of anticoagulants; Z79.899 Other long term (current) drug therapy
CPT/HCPCS: 93312; 93320; 93325; 92960; J2003; J2704

== ENCOUNTER → 2024-11-24 | Outpatient (CLI) | payer MEDICARE ==
[2024-11-25 02:21] LABS: Basophils # (A) 0.08 X 10*3/uL (0.00-0.10); Basophils % (A) 0.7 %; Eosinophils # (A) 0.42 X 10*3/uL (0.04-0.35); Eosinophils % (A) 3.7 %; HCT 47.7 % (39.6-50.0); HGB 15.2 g/dL (13.0-17.0); Immature Grans, Automated 0.30 %; Lymphocytes # (A) 0.63 X 10*3/uL (0.90-5.00); Lymphocytes % (A) 5.6 %; MCH 28.3 pg (27.0-32.0); MCHC 31.9 g/dL (32.0-37.0); MCV 88.8 FL (80.0-97.0); Monocytes # (A) 0.80 X 10*3/uL (0.20-1.00); Monocytes % (A) 7.1 %; NRBC Per 100 WBC 0 X 10*3/uL (0.00-0.01); Neutrophils # (A) 9.27 X 10*3/uL (1.80-7.70); Neutrophils % (A) 82.6 %; Platelet Count 249 X 10*3/uL (140-440); RBC 5.37 X 10*6/uL (4.40-5.60); RDW 14.4 % (11.5-14.5); WBC 11.23 X 10*3/uL (4.50-10.00)
[2024-11-25 03:08] LABS: ALT 47 U/L (10-49); AST 54 U/L (14-35); Albumin 5.1 g/dL (3.8-4.9); Albumin/Globulin Ratio 2.32 Ratio (1.60-3.17); Alkaline Phosphatase 98 U/L (41-126); Anion Gap 13.20 mmol/L (4.00-12.00); BUN/Creat Ratio 11.17 Ratio (12.00-20.00); Blood Urea Nitrogen 6.7 mg/dL (9.0-27.0); Calcium 10.0 mg/dL (8.7-10.3); Carbon Dioxide 26.8 mmol/L (21.6-31.8); Chloride 105 mmol/L (96-109); Globulin 2.2 g/dL (1.6-3.3); Glucose 113 mg/dL (70-110); Potassium 3.9 mmol/L (3.5-5.5); Sodium 145 mmol/L (135-145); Total Protein 7.3 g/dL (6.2-8.2)
== END | disposition home or self-care (01) ==
LOC: LABWHC1 16:33
PROVIDERS: ATTEND Internal Medicine Gastroenterology
DX: R79.89 Other specified abnormal findings of blood chemistry (principal)
CPT/HCPCS: 36415; 80053; 85025